=== PATIENT | male | born 1985 | race African-American/Black ===

== ENCOUNTER 2022-01-17 21:13 | Observation (INO) | payer SELFPAY ==
[2022-01-17] VITALS (11 sets, daily range): BP systolic 106–129; BP diastolic 52–74; PULSE 66–73; RESP 9–16; TEMP 37.2; O2SAT 89–100
--- NOTE | ~2022-01-17 | XR_ITS ---
EXAMINATION: XR chest 2V DATE: 01/18/2022 00:27 INDICATION: Leukocytosis. TECHNIQUE: Frontal and lateral views of the chest were obtained. COMPARISON: CT abdomen and pelvis 01/17/2022 FINDINGS: There is no pneumonia, pleural effusion, or pneumothorax. Cardiomegaly is noted. Surgical c lips in the right upper quadrant are likely from cholecystectomy. There is sclerosis in left humeral head, consistent with osteonecrosis. IMPRESSION: 1. Cardiomegaly. Reviewed, dictated and finalized at location A. ICULUM DIRECTOR IMPRESSION: 1. Cardiomegaly.
--- NOTE | ~2022-01-17 | CT_ITS ---
EXAMINATION: CT abdomen pelvis w con DATE: 01/17/2022 22:54 INDICATION: Lower abdominal pain, vomiting and leukocytosis TECHNIQUE: Computed tomography (CT) of the abdomen and pelvis was performed with 100 mL Omnipaque-350 intravenous contrast. Automated exposure control and iterative reconstruction technique were employe d. The dose-length product was 223.80 mGy-cm. COMPARISON: None FINDINGS: Curvilinear band of discoid atelectasis/scarring in the right lower lobe with associated mild volume loss. Cardiomegaly. No pericardial or pleural effusion. Cholecystectomy clips the gallbladder fossa. Hepatomegaly. 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 Pancreas, bilateral adrenal glands and rig ht kidney are normal. Small regions of subtle decreased cortical enhancement in the left kidney which could be related to infection or infarct no abnormal bowel wall thickening or obstruction. Bladder i s normal. No free intraperitoneal gas or fluid. No pathologically enlarged abdominal or pelvic lympha denopathy. Mild subarticular cystic change at the right femoral head which osteonecrosis could be rel ated to osteoarthritis with sequela of chronic osteonecrosis. IMPRESSION: 1. Cholecystectomy clips and small calcified likely autoinfarcted spleen suggesting sickle cell disea se. 2. Small regions of decreased cortical enhancement at the left kidney which could be related to pyelo nephritis or age-indeterminate infarct potentially associated with suspected sickle cell disease. Cor relate with urinalysis. 3. Hepatomegaly. 4. Small region of subarticular cystic change at the right femoral head related to osteoarthritis or sequela of chronic osteonecrosis again suspicious for sickle cell disease. 5. Cardiomegaly. Reviewed, dictated and finalized at location A. ER OPERATOR IMPRESSION: 1. Cholecystectomy clips and small calcified likely autoinfarcted spleen sugges ting sickle cell disease. 2. Small regions of decreased cortical enhancement at the left kidney which cou ld be related to pyelonephritis or age-indeterminate infarct potentially associ ated with suspected sickle cell disease. Correlate with urinalysis. 3. Hepatomegaly. 4. Small region of subarticular cystic change at the right femoral head related to osteoarthritis or sequela of chronic osteonecrosis again suspicious for sic kle cell disease. 5. Cardiomegaly.
--- NOTE | 2022-01-17 21:31 | ED.ABDPAIN ---
HPI - Abdominal Pain General Chief Complaint: Abdominal Pain Stated Complaint: sickle cell Time Seen by Provider: 01/17/22 21:21 Source: patient and family Mode of arrival: EMS Limitations: no limitations History of Present Illness HPI narrative: Pt is a 36 y/o male, PMHx of sickle cell anemia, presents to ED via EMS from home with C/O diffuse lower abdominal pain, nausea and vomiting since waking this morning. He estimates 6-8 episodes of vomiting without hematemesis or diarrhea. His LBM was two days ago. He denies known sick contacts or COV exposures. He was given Morphine and Zofran in route and his pain is marginally improved. He denies any additional associated symptoms or modifying factors. Pain Consistency: constant Location: other (diffuse lower abdomen) Severity: moderate Quality: cramping and aching Radiation: none Migration to: no migration Exacerbating factors: eating Relieving factors: nothing Associated symptoms: nausea and vomiting Related Data Allergies Allergy/AdvReac Type Severity Reaction Status Date / Time acetaminophen [From Percocet] AdvReac Nausea Verified 01/17/22 21:30 oxycodone [From Percocet] AdvReac Nausea Verified 01/17/22 21:30 Review of Systems Review of Systems: refer to HPI Constitutional: Constitutional: Reports as per HPI Gastrointestinal: Gastrointestinal: Reports as per HPI [facility] Past Medical History Medical History Sickle cell anemia with crisis Exam Const: General: cooperative and uncomfortable Nutritional Appearance: average body habitus Orientation/consciousness: oriented to person, oriented to place, oriented to time and patient oriented x3 Limitations: no limitations HENMT: Head: normal to inspection Ears: hearing grossly normal bilaterally Face and sinus: normal facial exam Mouth: Yes Normal oral and palatal mucosa present Throat: posterior oropharynx normal Eyes: General: appearance normal, both eyes and all related structures Visual Hirsch: normal visual hirsch by confrontation Alignment and Position: alignment normal Periorbital: periorbital findings normal Eyelids: eyelids normal Conjunctivae: conjunctivae normal Sclera: sclerae normal Cornea: corneas normal Pupils: Equal, round and reactive pupils present EOM: EOMs intact bilaterally Direct Ophthalmoscopy: no photophobia Neck: Neck: normal visual inspection Thyroid: thyroid normal Lymphatic: no lymphadenopathy noted Chest: Chest palpation & inspection: normal inspection of the chest Breast/axilla inspection: normal inspection of the breasts Breast/axilla palpation: normal palpation of the breasts Resp: Effort & Inspection: normal respiratory effort, able to speak in complete sentences and abnormal respiratory pattern Auscultation: clear to auscultation bilaterally Cardio: Palpation: normal PMI Rate: regular rate Rhythm: regular rhythm Heart sounds: S1 normal heart sound present and S2 normal heart sound present Peripheral pulses: Peripheral pulses 2+ throughout GI: Inspection: normal to inspection GI Palp: Yes Soft to palpation and Yes Other GI palpation findings present (no TTP, no rebound tenderness or pain at McBurney's point, neg Ledesma sign) Percussion: Yes normal to percussion Auscultation: normal bowel sounds Rectal Exam: deferred Course Vital Signs Vital signs: Vital Signs Pulse Rate 72 01/17/22 21:17 Respiratory Rate 13 01/17/22 21:17 Pulse Oximetry 90 01/17/22 21:17 Temperature 37.2 C 01/17/22 21:18 Pulse Rate 74 01/18/22 00:16 Respiratory Rate 14 01/18/22 00:16 Blood Pressure 135/71 01/18/22 00:16 Pulse Oximetry 97 01/18/22 00:16 MDM - Abdominal Pain Lab Data Result diagrams: 01/17/22 21:35 01/17/22 21:35 Labs: Lab Results 01/17/22 01/17/22 01/17/22 Range/Units 21:35 21:35 22:53 WBC 15.5 H (4.5-10.0) K/mm3 RBC 1.86 L (4.2-5.4) M/mm3 Hgb 6.
[2022-01-17] MEDS: PANTOPRAZOLE SODIUM IV 40 MG VIAL IV PUSH (21:32)
[2022-01-17] MEDS: MORPHINE SULFATE (*CRX) 4 MG/ML INJ IV PUSH (21:34)
[2022-01-17] MEDS: SODIUM CHLORIDE 0.9% IV 1,000 ML 999 ML IV CONT (21:35)
[2022-01-17 21:43] LABS: Mean Corpuscular HGB Conc 36.7 g/dl (32-36); Mean Corpuscular Hemoglobin 34.9 pg (26-34); Mean Corpuscular Volume 95.2 fl (80-100); Mean Platelet Volume 11.1 fl (7.4-10.4); Platelet Count Result 457 k/mm3 (150-375); Red Blood Count 1.86 M/mm3 (4.2-5.4); Red Cell Distribution Width 25.8 % (11.5-14.5); White Blood Count 15.5 K/mm3 (4.5-10.0)
[2022-01-17 21:58] LABS: Alanine Aminotransferase 26 U/L (4-35); Albumin Level 4.3 g/dL (3.5-5.1); Alkaline Phosphatase 91 U/L (38-126); Anion Gap 5 mmol/L (8-16); Aspartate Amino Transferase 69 U/L (14-36); Bilirubin,Total 8.3 mg/dL (0.2-1.3); Blood Urea Nitrogen 10 mg/dL (7-17); Calcium 8.4 mg/dL (8.4-10.2); Carbon Dioxide 25 mmol/L (22-30); Chloride 110 mmol/L (98-107); Estimated CRCL calculation 97 ml/min; Estimated Glomerular Filt Rate > 60; Glucose 109 mg/dL (65-110); Lipase 89 U/L (23-300); Potassium 4.5 mmol/L (3.4-5.0); Sodium 140 mmol/L (137-145)
[2022-01-17 22:19] LABS: Hemoglobin 6.5 g/dL (12.0-15.0)
[2022-01-17 22:20] LABS: Hematocrit 17.7 % (37.0-47.0); Reticulocyte Percent 42.01 % (0.7-4.3); Reticulocytes Absolute 0.73 B/L (32.2-175.7)
[2022-01-17 22:21] LABS: Immature Reticulocyte Fraction 25.7 % (3.0-15.9); Reticulocyte Hemoglobin Conten 32.3 pg (28.2-35.7)
[2022-01-17 22:22] LABS: Basophils Absolute Manual 0.15 K/mm3 (0.0-0.1); Basophils Percent Manual 1 % (0-1); Lymphocytes Absolute Manual 1.08 K/mm3 (1.1-4.5); Lymphocytes Percent Manual 7 % (18-44); Monocytes Absolute Manual 1.39 K/mm3 (0.1-0.90); Monocytes Percent Manual 9 % (3-9); Neutrophils Percent Manual 83 % (46-73); Nucleated Red Blood Cells 3 %; Platelet Estimate Increased (Adequate); Total Cells Counted 100
[2022-01-17 22:23] LABS: Polychromasia 1+ (NORMAL); Sickle Cells 1+ (NORMAL); Target Cells 1+ (NORMAL)
[2022-01-17 23:07] LABS: Add Urine Microscopic? YES; Appearance Urine Clear (Clear); Bilirubin Urine Negative (Negative); Blood Urine 1+ (Negative); Color Urine Yellow (Yellow); Glucose Urine UA Negative (Negative); Ketones Urine Negative (Negative); Leukocyte Esterase Ur Negative LEU/UL (Negative); Nitrate Urine Negative (Negative); Protein Urine Negative (Negative); RBC Urine 0-2 /hpf (0-2); Specific Grav Ur 1.009 (1.001-1.035); Urobilinogen Urine Negative mg/dL (<2.0); WBC Urine 0-3 /hpf
--- NOTE | 2022-01-17 23:10 | PC.NURSE ---
assuming care of pt.
[2022-01-18] VITALS (16 sets, daily range): BP systolic 119–135; BP diastolic 62–84; PULSE 60–82; RESP 14–18; TEMP 35.6–36.8; O2SAT 94–98; BMI 20.7
[2022-01-18] MEDS: MORPHINE SULFATE (*CRX) 4 MG/ML INJ IV PUSH ×3 (00:14→13:06)
[2022-01-18] MEDS: ONDANSETRON INJ 4 MG/2 ML VIAL IV PUSH ×3 (00:14→13:08)
[2022-01-18] MEDS: DEXTROSE 5%/0.45% SOD CHL 1,000 ML 150 ML IV CONT ×2 (02:16→12:26)
--- NOTE | 2022-01-18 04:44 | PM.IMHP ---
H&P: HPI History of Present Illness Date/Time: 01/18/22 04:44 Chief Complaint: Abdominal pain and vomiting Narrative: 36-year-old male with past medical history of sickle cell disease who presented to the ER with abdominal cramping and vomiting. Patient reports that he had began having some lower abdominal discomfort as if his stomach does did not feel well. A few hours later he ate some noodles and shortly thereafter began having some vomiting. He reports that he commonly has lower abdominal pain associated with his sickle cell crisis. He does not usually of vomiting associated with his crisis. He reports that his girlfriend has been telling him for the last 3 days that is sclera are yellow. This usually occurs when he is having sickle cell crisis. He states that he does not have crisis very often his last crisis was in September. Before that he had not crisis for a year or more. He has not seen a steeler in 14 years. He has last time he saw a steeler was prior to going to detention he was in detention for 9 years and was released 4 years ago. He was last hospitalized at [facility] in September. He does not know what type of sickle cell disease that he has. He states that he was discharged on folic acid after his last hospitalization but has not had a renewed. He reports that for the last several days he has also been having increasing pain in his ankles is aching in nature and moderate intensity. His worst pain is ice in his left hand in the air they metacarpals and palmar surface. He has noticed some mild swelling. He is having difficulty with supination. He denies any fevers or chills. He received his 2nd COVID vaccine approximately 4 months ago. He denies any recent ill contacts. He has not had any cough, congestion, rhinorrhea, diarrhea or changes in bowel habits. His last bowel movement was today and was normally formed without hematochezia or melena. He reports that his hemoglobin is usually between 7 and 8. He had to have a blood transfusion at his last hospitalization. Review of Systems Review of Systems: 12 systems were reviewed with pertinent positives and negatives per HPI. Except as documented in the HPI, all other systems were reviewed and are negative. [facility] Past Medical History Medical History (Updated 01/18/22 @ 05:01 by Jannet Rodriguez DO) Sickle cell anemia Surgical History Surgical History (Updated 01/18/22 @ 05:01 by Jannet Rodriguez DO) History of appendectomy (~2012) History of laparoscopic cholecystectomy (~2010) Family History Family History Father Cerebrovascular accident Social History Social History (Updated 01/18/22 @ 05:03 by Jannet Rodriguez DO) Social History: He lives in [place] with his girlfriend of 5 years. He has 1 daughter who is 16 years old is healthy but does not live with him. He worked [employer] what is currently laid off. He smoked 0.5 packs cigarettes for 9 years but quit in 2017. He used to smoke marijuana but has not done so in several years. He denies any alcohol use. He was in detention for 9 years but was released in 2018. Code status: Full code Smoking packs per day: 0.5 Smoking cigarettes per day: 10.0 Years smoked: 9 Smoking pack-years: 4.50 Smoking status: Former smoker Second hand tobacco smoke exposure: No Alcohol intake: never Substance use: former Substance use type: marijuana Spiritual care concerns: No Meds Home Medications and Allergies Home Medications Medication Instructions Recorded Confirmed Type Iron (ferrous sulfate) 325 mg PO DAILY 01/18/22 01/18/22 History Allergies Allergy/AdvReac Type Severity Reaction Status Date / Time oxycodone [From Percocet] AdvReac Nausea Verified 01/17/22 21:30 Vital Signs Vital Signs - 24 hr 01/17/22 21:17 01/17/22 21:18 01/17/22 21:22 Temperature 98.9 F Pulse Rate 72
[2022-01-18] MEDS: HYDROcodone/acetaminophen (*CRX) 10-325 MG TABLET 1 TAB PO (05:46)
[2022-01-18] MEDS: SODIUM CHLORIDE 0.9% IV 250 ML 30 ML IV CONT (05:47)
[2022-01-18] MEDS: FERROUS SULFATE 324 MG TABLET PO (08:53)
[2022-01-18] MEDS: FOLIC ACID 1 MG TABLET PO (08:53)
[2022-01-18 10:35] LABS: Hematocrit 19.3 % (42.0-52.0)
[2022-01-18 16:19] LABS: Hemoglobin 7.3 g/dL (14.0-18.0)
[2022-01-18 16:29] LABS: Hematocrit 20.2 % (42.0-52.0)
--- NOTE | 2022-01-18 17:17 | PM.DS ---
DS: Admitting Diagnosis Discharge Date 01/18/22 Admitting Diagnosis (1) Sickle cell anemia with crisis: Code(s): D57.00 - Hb-SS disease with crisis, unspecified Status: Acute DS: Discharge Diagnosis Discharge Diagnosis (1) Sickle cell anemia with crisis: Code(s): D57.00 - Hb-SS disease with crisis, unspecified Status: Acute (2) Nausea & vomiting: Qualifiers: Vomiting type: unspecified Qualified Code(s): R11.2 - Nausea with vomiting, unspecified Code(s): R11.2 - Nausea with vomiting, unspecified Status: Acute DS: Summary Hospital Course Reason for hospitalization: abd pain Hospital Course: 36-year-old male with sickle cell anemia with pain crisis and symptomatic anemia. The patient's baseline lab values are unknown at the time of admission, however,. he did have evidence of increasing scleral icterus, elevated bilirubin markedly elevated % reticulocyte count. Patient received 1 L normal saline. He was continued on moderate IV fluid hydration with D5 half-normal saline at 150 mL an hour, and was provided w supplemental oxygen. Pain medications were provided with [place] and IV morphine. Pt received one unit of PRBCs and was placed on folic acid daily. Patient's symptoms dramatically improved and he requested to sign out against medical advice shortly after admission stating that he felt better. Patient was provided with AMA form and then discharged. Status at Discharge Functional status at discharge: independent ambulation Overall status at discharge: patient is back to baseline Time Spent with Patient Time attestation: Total time spent providing and/or coordinating discharge services: Time spent: Less than 30 minutes Exam Narrative: GEN: NAD, AAOx3, cooperative HEENT: NCAT, MMM, EOMI Neck: no JVD Lungs: No use of accessory muscles symmetric chest rise Abd: soft, NT, ND Ext: moves all, no cyanosis, no clubbing, no edema Neuro: Cranial nerves intact no focal neurological deficits appreciated Psych: mood and affect congruent DS: Data Data Completed and Pending Labs on day of discharge: Labs from last 24 hours 01/18/22 01/18/22 01/17/22 15:56 10:06 22:53 WBC RBC Hgb 7.3 L 7.0 L Hct 20.2 L* 19.3 L* MCV MCH MCHC RDW Plt Count MPV Immature Gran % (Auto) Neut % (Auto) Lymph % (Auto) [place] % (Auto) Eos % (Auto) Baso % (Auto) Lymph # (Auto) [place] # (Auto) Eos # (Auto) Baso # (Auto) Abs Immat Gran (auto) Absolute Neuts (auto) Absolute Nucleated RBC Total Counted Neutrophils % (Manual) Lymphocytes % (Manual) Monocytes % (Manual) Basophils % (Manual) Nucleated RBC % Abs Lymphs (Manual) Abs Monocytes (Manual) Abs Basophils (Manual) Nucleated RBCs Platelet Estimate Polychromasia Sickle Cells Target Cells Absolute Retic Percent Retic Immature Retic Fraction Retic Hgb Content Sodium Potassium Chloride Carbon Dioxide Anion Gap BUN Creatinine Estim Creat Clear Calc Estimated GFR Glucose Calcium Total Bilirubin AST ALT Alkaline Phosphatase Total Protein Albumin Lipase Urine Color Urine Appearance Urine pH Ur Specific [place] Urine Protein Urine Glucose (UA) Urine Ketones Ur Blood (Man) Urine Nitrate Urine Bilirubin Urine Urobilinogen Leukocyte Esterase Rfl Urine RBC Urine WBC Blood Type A Positive Antibody Screen Negative Crossmatch See Detail 01/17/22 01/17/22 01/17/22 22:53 21:35 21:35 WBC 15.5 H RBC 1.86 L Hgb 6.5 L* Hct 17.7 L* MCV 95.2 MCH 34.9 H MCHC 36.7 H RDW 25.8 H Plt Count 457 H MPV 11.1 H Immature Gran % (Auto) Not Reportable Neut % (Auto) Not Reportable Lymph % (Auto) Not Reportable [place] % (Auto) Not Reportable Eos % (Auto) Not Reportable
== END 2022-01-18 17:25 | disposition left against medical advice (07) ==
LOC: ANHED 22:25 → ANH3MEDSUR 01-18 00:59
PROVIDERS: Admitting Provider Internal Medicine; Emergency Provider Nurse Practitioner Family; Visit Provider Hospitalist
DX: D57.00 Hb-SS disease with crisis, unspecified (principal); R10.30 Lower abdominal pain, unspecified; R11.2 Nausea with vomiting, unspecified; Z87.891 Personal history of nicotine dependence
CPT/HCPCS: 36415; 36430; 71046; 74177; 80053; 81001; 83690; 85014; 85018; 85025; 85046; 85660; 86850; 86900; 86901; 86902; 86920; 96361; 96374; 96375; 96376; 99285; A9270; C9113; G0378; G0379; J2270; J2405; J7030; J7050; P9016; Q9967

== ENCOUNTER 2022-02-13 06:42 | Inpatient (IN) | payer OTHER, SELFPAY ==
[2022-02-13] VITALS (23 sets, daily range): BP systolic 137–167; BP diastolic 77–133; PULSE 70–79; RESP 9–20; TEMP 36.1–36.7; O2SAT 85–100; BMI 23.0; BMI 21.3
--- NOTE | ~2022-02-13 | CT_ITS ---
EXAMINATION: CT abdomen pelvis w con EXAM DATE: 02/13/2022 14:50 INDICATION: Abdominal pain, nausea, vomiting, sickle cell. TECHNIQUE: Spiral CT of the abdomen and pelvis was performed following intravenous injection of 100 m L Omnipaque 350. Axial, coronal and sagittal images of the abdomen and pelvis were reviewed. The do se-length product (DLP) for this examination was 261.43 mGy-cm. The exposure was tailored according to patient size (auto mA exposure control), and iterative reconstruction (ASIR) was used as additiona l dose reduction technique. Comparison is made to prior examination from 01/17/2022. FINDINGS: Small calcified density left upper quadrant, probably patient's spleen given patient's hist ory. Hepatomegaly. Adrenal glands and pancreas are unremarkable. There are cholecystectomy clips. Portal and splenic veins are patent. Kidneys slightly heterogeneous renal parenchymal enhancement, l ess apparent than on prior study. There is no hydronephrosis. The prostate is unremarkable. The bladder is unremarkable. There is no retroperitoneal or pelvic lymphadenopathy. Tiny periumbilical fat-containing hernia. There are no findings to suggest appendicitis. The stomach and small bowel are unremarkable. There is expected amount of colonic stool. No free intraperitoneal gas. There is cardiomegaly. There ar e no pleural or pericardial effusions. The lung bases are unremarkable. The bones are unremarkable. There is no significant interval change. IMPRESSION: 1. Slightly heterogeneous renal cortical enhancement, less conspicuous than prior study. Could be v asculopathy. Excluded upper UTI with urinalysis. 2. Tiny umbilical hernia. 3. Hepatomegaly. 4. Cardiomegaly. Reviewed, dictated and finalized at location A. IMPRESSION: 1. Slightly heterogeneous renal cortical enhancement, less conspicuous than pr ior study. Could be vasculopathy. Excluded upper UTI with urinalysis. 2. Tiny umbilical hernia. 3. Hepatomegaly. 4. Cardiomegaly.
--- NOTE | ~2022-02-13 | CT_ITS ---
EXAMINATION: CTA chest PE protocol EXAM DATE: 02/15/2022 14:30 INDICATION: Hypoxia, sickle cell . TECHNIQUE: Spiral CTA of the chest (pulmonary arteries) was performed with 100 cc Omnipaque 350 intr avenous contrast injection. Images were acquired during the pulmonary arterial phase. Coronal maxi mum intensity projection 3D-reconstructions were created by the technologist on dedicated workstation . Axial, coronal and sagittal reformatted images were reviewed. The dose-length product (DLP) for t his examination was 256.07 mGy-cm. The exposure was tailored according to patient size (auto mA exp osure control), and iterative reconstruction (ASIR) was used as additional dose reduction technique. Correlation is made to abdomen pelvis CT 02/13/2022. FINDINGS: There are no pulmonary emboli in the 1st through 3rd order (central and interlobar) pulmon major arteries. Some loss of attenuation in left upper lobe subsegmental pulmonary arteries from suspe cted most likely from the respiratory motion demonstrated at that level. No thoracic aortic dissect ion. Interval progression in small amount of linear bibasilar opacities likely atelectasis. No pneumonia s uspected. There are no pleural or pericardial effusions. Tracheobronchial tree is patent. There is no mediastinal, hilar or axillary lymphadenopathy. There is no pneumothorax. Severe cardiomega ly. No evidence of coronary arterial calcification. Hepatomegaly. No osteoblastic or osteolytic le sions identified. IMPRESSION: 1. Minor limitations, but no pulmonary emboli suspected. 2. Progression of bibasilar subsegmental atelectasis. 3. Severe cardiomegaly. 4. Hepatomegaly. Reviewed, dictated and finalized at location A.
--- NOTE | ~2022-02-13 | XR_ITS ---
EXAMINATION: XR chest 1V portable DATE: 02/13/2022 10:31 INDICATION: Epigastric abdominal pain. TECHNIQUE: A single frontal view of the chest was obtained on 2 radiographs. COMPARISON: CT abdomen and pelvis 01/17/2022 FINDINGS: There is no pneumonia, pleural effusion, or pneumothorax. Cardiomegaly is noted. IMPRESSION: 1. Cardiomegaly. Reviewed, dictated and finalized at location A. IMPRESSION: 1. Cardiomegaly.
--- NOTE | ~2022-02-13 | XR_ITS ---
EXAMINATION: XR hand LT min 3V EXAM DATE: 02/17/2022 10:07 INDICATION: Pain/injury. TECHNIQUE: Left hand frontal, lateral and oblique projections obtained and reviewed. There is no sixto or study for comparison. FINDINGS: Left metacarpal bones are unremarkable. There are no acute fractures or dislocations ident ified. There is no subcutaneous gas. The soft tissue is unremarkable. There are no radiopaque for eign bodies. IMPRESSION: 1. XR hand LT min 3V exam without acute osseous findings. Reviewed, dictated and finalized at location A.
--- NOTE | 2022-02-13 06:54 | ECG_ITS ---
Measurements Intervals [place] Rate: 70 P: 165 KS: 278 QRS: 78 QRSD: 95 T: 54 QT: 404 QTc: 437 Interpretive Statements SINUS RHYTHM MARKED FIRST DEGREE AV BLOCK VOLTAGE CRITERIA FOR LVH [MEETS CRITERIA IN ONE OF: R(aVL), S(V1), R(V5), R(V5/V6)+S(V1)] NO PREVIOUS ECG AVAILABLE FOR COMPARISON Electronically Signed On 02-13-2022 16:27:39 CDT by Teresa Selby M.D.
[2022-02-13 07:04] LABS: Basophils Absolute Auto 0.1 K/mm3 (0.0-0.1); Basophils Percent Auto 0.7 % (0.2-1.2); Eosinophils Absolute Auto 0.1 K/mm3 (0-0.3); Eosinophils Percent Auto 0.7 % (0-4.4); Immature Granulocyte Absolute 0.16 K/mm3 (0.00-0.031); Immature Platelet Fraction Pct 7.4 % (0.9-11.2); Lymphocytes Absolute Auto 1.78 K/mm3 (0.9-3.2); Lymphocytes Percent Auto 10.8 % (18.3-44.2); Mean Corpuscular HGB Conc 36.1 g/dl (32-36); Mean Corpuscular Hemoglobin 34.5 pg (26-34); Mean Corpuscular Volume 95.5 fl (80-100); Mean Platelet Volume 11.3 fl (7.4-10.4); Monocytes Absolute Auto 2.4 K/mm3 (0.1-0.6); Monocytes Percent Auto 14.5 % (2.6-8.5); Neutrophils Absolute Auto 11.9 K/mm3 (1.3-6.7); Neutrophils Percent Auto 72.3 % (45.5-73.1); Nucleated Red Blood Cells Absolute Auto 0.2 K/mm3 (0.0-0.012); Nucleated Red Blood Cells Perc 1.3 % (0.0-0.2); Platelet Count Result 417 k/mm3 (150-375); Red Cell Distribution Width 23.7 % (11.5-14.5); White Blood Count 16.5 K/mm3 (4.5-10.0)
[2022-02-13] MEDS: SODIUM CHLORIDE 0.9% IV 1,000 ML 999 ML IV CONT ×2 (07:06→08:02)
[2022-02-13 07:23] LABS: Alanine Aminotransferase 60 U/L (4-50); Albumin Level 4.4 g/dL (3.5-5.1); Alkaline Phosphatase 109 U/L (38-126); Anion Gap 8 mmol/L (8-16); Aspartate Amino Transferase 83 U/L (17-59); Bilirubin,Total 9.9 mg/dL (0.2-1.3); Blood Urea Nitrogen 8 mg/dL (9-20); Calcium 8.9 mg/dL (8.4-10.2); Carbon Dioxide 27 mmol/L (22-30); Chloride 107 mmol/L (98-107); Estimated CRCL calculation 121 ml/min; Estimated Glomerular Filt Rate > 60; Glucose 121 mg/dL (65-110); Lipase 96 U/L (23-300); Potassium 4.3 mmol/L (3.4-5.0); Sodium 142 mmol/L (137-145)
[2022-02-13 07:25] LABS: Hemoglobin 6.9 g/dL (14.0-18.0)
[2022-02-13 07:26] LABS: Hematocrit 19.1 % (42.0-52.0); Platelet Estimate Increased (Adequate)
[2022-02-13] MEDS: ONDANSETRON INJ 4 MG/2 ML VIAL IV PUSH ×2 (07:26→13:11)
[2022-02-13 07:27] LABS: Sickle Cells 2+ (NORMAL)
[2022-02-13] MEDS: MORPHINE SULFATE (*CRX) 4 MG/ML INJ IV PUSH (07:27)
--- NOTE | 2022-02-13 07:39 | ED.ABDPAIN ---
HPI - Abdominal Pain General Chief Complaint: Abdominal Pain Stated Complaint: abd pain Time Seen by Provider: 02/13/22 07:11 Source: patient Mode of arrival: ambulatory Limitations: no limitations History of Present Illness HPI narrative: 36-year-old male presents emergency room secondary to abdominal and back pain. States he got online history of sickle cell disease and this is the typical pain he gets from that. Had a last flareup a few weeks ago was hospitalized for several days. Not have any pain medication at home. He is up-to-date on his vaccinations including Covid. Denies any nausea vomiting. States he feels like he has had a fever but is not taking it at home. Related Data Allergies Allergy/AdvReac Type Severity Reaction Status Date / Time oxycodone [From Percocet] AdvReac Nausea Verified 02/13/22 06:49 Review of Systems Review of Systems: CONSTITUTIONAL: Denies fever, chills, or sweats. EYES: Denies visual changes, redness, or discharge. ENT: Denies rhinorrhea, congestion, sore throat, or otalgia. CARDIOVASCULAR: Denies chest pain, palpitations, or edema. RESPIRATORY: Denies cough or dyspnea. GASTROINTESTINAL: Denies nausea, vomiting, or diarrhea. Diffuse abdominal pain GENITOURINARY: Denies dysuria or hematuria. SKIN: Denies rash or itching. MUSCULOSKELETAL: Having back pain and some pain in the lower extremities. NEUROLOGIC: Denies headache, numbness, or weakness. PSYCHIATRIC: Denies anxiety or depression. [facility] Past Medical History Medical History (Updated 02/13/22 @ 14:10 by Shelley Acuna PA-C) Sickle cell anemia Surgical History Surgical History (Updated 02/13/22 @ 14:08 by Shelley Acuna PA-C) History of appendectomy (2012) History of laparoscopic cholecystectomy (2010) Family History Family History Father Cerebrovascular accident Social History Social History (Updated 02/13/22 @ 14:01 by Shelley Acuna PA-C) Social History: He lives in [place] with his girlfriend of 5 years. He has a 16-year-old daughter. He was not present for 9 years but was released in 2018. He was recently laid off and is not currently employed. He smoked 0.5 packs cigarettes for 9 years but quit in 2017. He used to smoke marijuana but has not done so in several years. No alcohol abuse. Surrogate decision maker: Code status: Full code Spiritual care concerns: No Exam Narrative: APPEARANCE: Appears to be in mild distress secondary to pain Head normocephalic and atraumatic. EYES: PERRLA/EOMI, conjunctivae very clear. NOSE: Normal with no drainage EARS:TMS clear Bernardino Young, with good light reflex. THROAT: Pharynx clear, no exudate. NECK: Supple. No adenopathy, no masses. RESPIRATORY: Airway patent, respirations nonlabored. Clear to auscultation bilaterally, no rales, rhonchi, wheezing. CARDIOVASCULAR: Regular rate and rhythm without murmurs, rubs, or gallops. ABDOMINAL: Soft, nondistended, no hepatosplenomegaly. Mild diffuse pain that is nonfocal Musculoskeletal: Moves all extremities. Strength/ROM intact, No edema, No calf tenderness. NEURO: Alert. Cranial nerves II through XII intact. Normal gait. Good coordination. Nonfocal examination. SKIN:: Warm, dry. Normal Color PSYCHIATRIC: Normal affect/mood, normal interaction Course Vital Signs Vital signs: Vital Signs Temperature 98.1 F 02/13/22 06:43 Pulse Rate 71 02/13/22 06:43 Respiratory Rate 12 02/13/22 06:43 Blood Pressure 151/83 H 02/13/22 06:43 Pulse Oximetry 85 L 02/13/22 06:43 Temperature 97.3 F L 02/13/22 15:15 Pulse Rate 73 02/13/22 15:15 Respiratory Rate 18 02/13/22 15:15 Blood Pressure 164/86 H 02/13/22 15:15 Pulse Oximetry 98 02/13/22 15:15 MDM - Abdominal Pain MDM Narrative Medical decision making narrative: Patient comes in with his typical sickle cell painful crisis. IV established and began fluid resuscitation as well as
[2022-02-13 07:44] LABS: Alanine Aminotransferase 58 U/L (4-50); Albumin Level 4.4 g/dL (3.5-5.1); Alkaline Phosphatase 109 U/L (38-126); Anion Gap 6 mmol/L (8-16); Aspartate Amino Transferase 86 U/L (17-59); Bilirubin,Total 9.9 mg/dL (0.2-1.3); Blood Urea Nitrogen 7 mg/dL (9-20); Calcium 8.7 mg/dL (8.4-10.2); Carbon Dioxide 28 mmol/L (22-30); Chloride 107 mmol/L (98-107); Estimated CRCL calculation 121 ml/min; Estimated Glomerular Filt Rate > 60; Glucose 112 mg/dL (65-110); Potassium 4.3 mmol/L (3.4-5.0); Sodium 141 mmol/L (137-145)
--- NOTE | 2022-02-13 08:05 | PC.NURSE ---
PT encouraged to use urinal at bedside. PT states he will notify nurse when he voids.
[2022-02-13] MEDS: MORPHINE SULFATE (*CRX) 2 MG/ML INJ IV PUSH ×3 (09:01→20:28)
[2022-02-13 09:12] LABS: Add Urine Microscopic? YES; Appearance Urine Clear (Clear); Bilirubin Urine Negative (Negative); Blood Urine 1+ (Negative); Color Urine Yellow (Yellow); Glucose Urine UA Negative (Negative); Ketones Urine Negative (Negative); Leukocyte Esterase Ur Negative LEU/UL (Negative); Nitrate Urine Negative (Negative); Protein Urine Negative (Negative); Specific Grav Ur 1.008 (1.001-1.035); Urobilinogen Urine Negative mg/dL (<2.0); WBC Urine 0-3 /hpf
[2022-02-13] MEDS: fentaNYL CITRATE INJ (*CRX) 100 MCG/2 ML VIAL 25 MCG IV PUSH (11:02)
--- NOTE | 2022-02-13 11:48 | PC.NURSE ---
SBAR sent to floor.
--- NOTE | 2022-02-13 12:01 | PC.NURSE ---
Pt reporting nausea and stomach cramping. Hospitalist contacted for medication orders, LMVM. pt and family updated.
[2022-02-13 12:19] LABS: Lactate Dehydrogenase 1188 U/L (313-618)
--- NOTE | 2022-02-13 12:39 | ADMGEN ---
This patient, Giovanni Ocasio, was admitted to Medical Room 346-01. Patient/family oriented to hospital policies and general routines including ID bracelet, bed and alarms, visiting hours, pain management, procedures, bathroom and other care routines, personal items, smoking policy, room service/diet, and visiting hours. Information on how to activate the Rapid Response Team has been discussed. Patient/Family are encouraged to report perceived risks to care and to ask questions if they do not understand what they are told or what they should do.
--- NOTE | 2022-02-13 13:04 | PDONCCN ---
[facility] - Date of Consult Date/Time: 02/13/22 13:04 Requesting Physician: Nohemy Glass MD Primary Care Provider: MACHINE OPERATOR HAY STACKER PHYSICIAN - Consult Narrative Reason for consult: Sickle cell anemia. Narrative: Giovanni Ocasio is a 36 year old male with history of sickle cell disease. Patient goal from inform me that he just got the insurance. He has not seen any director of music and primary care physician in the past. He was recently admitted to the hospital on January 18 with sickle cell crisis episode when he presented with abdominal pain and vomiting but left AMA. Patient came back to the office with abdominal pain nausea and weakness. He denies any diarrhea and melena hematochezia. Labs showed hemoglobin of 6.9 with elevated WBC count of 16.5. Platelets were also elevated at 417. Chest x-ray showed cardiomegaly. Patient had CT scan abdomen done on January 17 that showed hepatomegaly along with small region of cortical enhancement of the left kidney could be related to pyelonephritis or infarction from sickle cell disease. Review of Systems - Review of Systems All systems reviewed & are unremarkable except as noted in HPI and [facility] Medical History: Medical History (Last Reviewed 02/13/22 @ 07:41 by Levi Tyson DO) Sickle cell anemia Surgical History: Surgical History (Last Reviewed 02/13/22 @ 07:41 by Levi Tyson DO) History of appendectomy Onset Date: ~2012 History of laparoscopic cholecystectomy Onset Date: ~2010 Family History: Family History (Last Reviewed 02/13/22 @ 12:49 by Shantel Lucio RN) Father Cerebrovascular accident - Social History Social History: Social History (Last Reviewed 02/13/22 @ 07:41 by Levi Tyson DO) Alcohol Use: Alcohol intake: never Substance Use: Substance use: never Substance use type: marijuana Others: Spiritual care concerns: No Smoking Status: Smoking status: Never smoker Second hand tobacco smoke exposure: No Smoking Pack-years: Smoking packs per day: 0.5 Smoking cigarettes per day: 10.0 Years smoked: 9 Smoking pack-years: 4.50 Meds Home Medications Medication Instructions Recorded Confirmed Type Iron (ferrous sulfate) 325 mg PO DAILY 01/18/22 01/18/22 History Allergies Allergy/AdvReac Type Severity Reaction Status Date / Time oxycodone [From Percocet] AdvReac Nausea Verified 02/13/22 06:49 Results - Labs CBC & Chem 7: 02/13/22 06:52 02/13/22 07:26 Labs: Short CBC 02/13/22 02/13/22 Range/Units 06:52 07:26 WBC 16.5 H Cancelled (4.5-10.0) K/mm3 Hgb 6.9 L* Cancelled (14.0-18.0) g/dL Hct 19.1 L* Cancelled (42.0-52.0) % Plt Count 417 H Cancelled (150-375) k/mm3 BMP 02/13/22 02/13/22 06:52 07:26 Sodium 142 141 Potassium 4.3 4.3 Chloride 107 107 Carbon Dioxide 27 28 BUN 8 L 7 L Creatinine 0.80 0.80 Glucose 121 H 112 H Calcium 8.9 8.7 Liver Function 02/13/22 02/13/22 Range/Units 06:52 07:26 Total Bilirubin 9.9 H 9.9 H (0.2-1.3) mg/dL AST 83 H 86 H (17-59) U/L ALT 60 H 58 H (4-50) U/L Alkaline Phosphatase 109 109 (38-126) U/L Albumin 4.4 4.4 (3.5-5.1) g/dL Urine 02/13/22 Range/Units 08:57 Urine Color Yellow (Yellow) Urine Appearance Clear (Clear) Urine pH 9.0 (5.0-9.0) Ur Specific [place] 1.008 (1.001-1.035) Urine Protein Negative (Negative) mg/dL Urine Glucose (UA) Negative (Negative) mg/dL Assessment and Plan - Additional Plan Sickle cell crisis. Patient is a 36-year-old male with history of sickle cell disease. He has not seen director of music for long time. He was recently admitted to the hospital on January 18 with abdominal pain nausea and vomiting but left AMA. CT abdomen done at that time showed possible pyelonephritis or renal infarction involving the left kidney. Labs from this admission showed hemoglobin of 6.9 with elevated
[2022-02-13] MEDS: SODIUM CHLORIDE 0.9% IV 1,000 ML 100 ML IV CONT (13:14)
[2022-02-13 13:30] LABS: Iron 176 ug/dL (49-181)
[2022-02-13 13:39] LABS: Percent Iron Saturation 62 % (20-50)
--- NOTE | 2022-02-13 14:00 | PM.IMHP ---
H&P: HPI History of Present Illness Date/Time: 02/13/22 14:00 Chief Complaint: Abdominal cramping. Narrative: This is a 36-year-old male with sickle cell disease who presented to the emergency department for evaluation of abdominal cramping. He was recently admitted to the hospital on 01/17/2022 with sickle cell crisis episode after presenting with similar symptoms though he left against medical advice. He has been doing okay since that time however yesterday he developed diffuse cramping in the abdomen as well as pain throughout his back and legs, similar to prior pain crises. Additionally he has had pretty significant nausea and has had several episodes of vomiting. Pertinent labs today showed a hemoglobin and hematocrit of 6.9 and 19.1% respectively with an increase in absolute neutrophil count, and an elevated LDH at 1188; sickle cells were also noted on peripheral smear. He is being admitted in this setting. He denies recent illness however he had a low-grade fever at home of 100?. He is up-to-date on vaccinations including COVID. In addition to the above pain he currently has a mild headache. He denies neck ache, sinus congestion, rhinorrhea, otalgia, odynophagia, chest pain, shortness breast, cough, hematemesis, diarrhea, melena, hematochezia, dysuria, and hematuria. No sick contacts. Review of Systems Review of Systems: Twelve systems were reviewed. He has been told that his heart looked enlarged before but he has never had an echocardiogram done for evaluation. No syncope or near syncope. He denies exertional chest pain shortness of breath. No orthopnea, paroxysmal nocturnal dyspnea, or edema. Except as documented, all other systems were reviewed and are negative. [facility] Past Medical History Medical History (Updated 02/13/22 @ 14:10 by Shelley Acuna PA-C) Sickle cell anemia Surgical History Surgical History (Updated 02/13/22 @ 14:08 by Shelley Acuna PA-C) History of appendectomy (2012) History of laparoscopic cholecystectomy (2010) Family History Family History Father Cerebrovascular accident Social History Social History (Updated 02/13/22 @ 20:27 by Shelley Acuna PA-C) Social History: Lives in [place] with his significant other. He has one child, a 16-year-old daughter. Recently laid off and is not currently employed. Smoked 0.5 packs cigarettes for 9 years but quit in 2017. He used to smoke marijuana but has not done so in several years. No alcohol abuse. Surrogate decision maker: Marilee Cantu, spouse. Code status: Full code Spiritual care concerns: No Meds Home Medications and Allergies Allergies Allergy/AdvReac Type Severity Reaction Status Date / Time oxycodone [From Percocet] AdvReac Nausea Verified 02/13/22 06:49 Vital Signs Vital Signs - 24 hr 02/13/22 06:43 02/13/22 06:50 02/13/22 06:52 Temperature 98.1 F Pulse Rate 71 71 Respiratory Rate 12 9 L Blood Pressure 151/83 H 151/83 H Pulse Oximetry 85 L 92 97 02/13/22 07:01 02/13/22 07:15 02/13/22 07:16 Temperature Pulse Rate 70 74 72 Respiratory Rate 17 11 L 14 Blood Pressure 159/91 H 154/93 H Pulse Oximetry 99 98 98 02/13/22 07:30 02/13/22 07:31 02/13/22 07:45 Temperature Pulse Rate 79 78 77 Respiratory Rate 20 19 17 Blood Pressure 148/133 H Pulse Oximetry 99 98 97 02/13/22 07:46 02/13/22 08:00 02/13/22 08:01 Temperature Pulse Rate 71 71 72 Respiratory Rate 15 17 14 Blood Pressure 156/85 H 150/91 H Pulse Oximetry 98 99 100 02/13/22 08:15 02/13/22 08:16 02/13/22 12:05 Temperature Pulse Rate 75 Respiratory Rate 18 Blood Pressure 146/91 H 137/77 Pulse Oximetry 97 96 98 02/13/22 12:17 02/13/22 12:38 Temperature 97.0 F L Pulse Rate 77 75 Respiratory Rate 18 16 Blood Pressure 167/85 H Pulse Oximetry 98 100 Exam Narrative: General: Moderately ill-appearing gentleman lying on his right side
--- NOTE | 2022-02-13 14:10 | ECHO_ITS ---
Patient Info Name: Giovanni Ocasio Age: 36 years : 1985 Gender: Male Ht: 72 in Wt: 157 lbs BSA: 1.90 m2 HR: 75 bpm BP: 167 / 85 mmHg Heart Rhythm: Sinus Rhythm Technical Quality: Fair Exam Date: 02/13/2022 3:36 PM Exam Location: [facility] Patient Status: Outpatient Admit Date: 02/13/2022 Staff Ordering Physician: Shelley Acuna PA-C Manager Hospital: [facility] Attending Provider: Nohemy Glass MD Referring Physician: Armand CHRISTENSEN; Exam Type: CA echo doppler color flow Study Info Indications - cardiomegaly, sickle cell disease Complete two-dimensional, color flow and Doppler transthoracic echocardiogram is performed. Summary 1. Complete two-dimensional, color flow and Doppler transthoracic echocardiogram is performed. 2. Moderately severe left ventricular enlargement with mild eccentric hypertrophy. Mild global hypokinesis with no segmental wall motion abnormalities. Visual ejection fraction is 45-50%. Normal diastolic function. 3. Left atrial chamber dimension is moderately enlarged. 4. There is mild mitral valve regurgitation. 5. There is mild tricuspid valve regurgitation. 6. Mild pulmonary hypertension, estimated pulmonary arterial systolic pressure is 40 mmHg. 7. Normal sinus rhythm. Left Ventricle Left ventricular chamber dimension is moderately enlarged. Left ventricular systolic function is mildly reduced, estimated at 45-50%. There is mildly increased left ventricular wall thickness. Left ventricular septal wall motion is normal. The left ventricular diastolic function is normal. Right Ventricle Right ventricular chamber dimension is normal. Right ventricular systolic function is normal. Left Atria Left atrial chamber dimension is moderately enlarged. Right Atria Right atrial chamber dimension is normal. Aortic Valve The aortic valve is trileaflet. There is no aortic valve sclerosis. There is no aortic valve stenosis. There is no aortic valve regurgitation. Pulmonic Valve The pulmonic valve is normal. There is no pulmonic valve stenosis. There is no pulmonic regurgitation. Mitral Valve The mitral valve has normal leaflets. There is no mitral valve stenosis. There is mild mitral valve regurgitation. Tricuspid Valve The tricuspid valve leaflets are normal. There is no significant tricuspid valve stenosis. There is mild tricuspid valve regurgitation. Mild pulmonary hypertension, estimated pulmonary arterial systolic pressure is 40 mmHg. Pericardium/Pleural The pericardium appears normal. There is no pericardial effusion. Inferior Vena Cava Normal inferior vena cava with >50% collapse upon inspiration consistent with Empty right atrial pressure, 10 mmHg. Aorta The aortic root size at the sinus of Valsalva is normal. The prox ascending aorta size is normal. Left Ventricular Outflow Tract Name Value Normal LVOT 2D LVOT Diameter 2.1 cm LVOT Doppler LVOT Peak Gradient 5 mmHg LVOT Mean Gradient 2 mmHg LVOT VTI 19 cm
[2022-02-13 14:36] LABS: Folic Acid 9.8 ng/mL (2.76->20)
[2022-02-13] MEDS: PROMETHAZINE HCL 25 MG/ML AMPUL 12.5 MG IV PUSH ×2 (15:15→19:42)
[2022-02-14] VITALS (11 sets, daily range): BP systolic 149–162; BP diastolic 75–92; PULSE 72–82; RESP 14–18; TEMP 36.2–38; O2SAT 92–100
[2022-02-14] MEDS: SODIUM CHLORIDE 0.9% IV 250 ML 30 ML IV CONT (01:16)
[2022-02-14] MEDS: MORPHINE SULFATE (*CRX) 2 MG/ML INJ IV PUSH ×2 (05:17→10:29)
[2022-02-14] MEDS: PROMETHAZINE HCL 25 MG/ML AMPUL 12.5 MG IV PUSH ×3 (05:48→13:27)
[2022-02-14 06:11] LABS: Basophils Absolute Auto 0.1 K/mm3 (0.0-0.1); Basophils Percent Auto 0.5 % (0.2-1.2); Eosinophils Percent Auto 0.2 % (0-4.4); Hematocrit 23.3 % (42.0-52.0); Hemoglobin 8.1 g/dL (14.0-18.0); Immature Granulocyte Absolute 0.14 K/mm3 (0.00-0.031); Immature Granulocyte Percent A 0.7 % (0-0.5); Lymphocytes Absolute Auto 2.52 K/mm3 (0.9-3.2); Lymphocytes Percent Auto 13.5 % (18.3-44.2); Mean Corpuscular HGB Conc 34.8 g/dl (32-36); Mean Corpuscular Hemoglobin 33.1 pg (26-34); Mean Corpuscular Volume 95.1 fl (80-100); Mean Platelet Volume 11.6 fl (7.4-10.4); Monocytes Absolute Auto 2.6 K/mm3 (0.1-0.6); Monocytes Percent Auto 13.8 % (2.6-8.5); Neutrophils Absolute Auto 13.4 K/mm3 (1.3-6.7); Neutrophils Percent Auto 71.3 % (45.5-73.1); Nucleated Red Blood Cells Absolute Auto 0.1 K/mm3 (0.0-0.012); Nucleated Red Blood Cells Perc 0.7 % (0.0-0.2); Platelet Count Result 402 k/mm3 (150-375); Red Blood Count 2.45 M/mm3 (4.6-6.20); Red Cell Distribution Width 20.3 % (11.5-14.5); White Blood Count 18.7 K/mm3 (4.5-10.0)
[2022-02-14 06:25] LABS: Alanine Aminotransferase 49 U/L (4-50); Albumin Level 4.2 g/dL (3.5-5.1); Alkaline Phosphatase 94 U/L (38-126); Anion Gap 9 mmol/L (8-16); Aspartate Amino Transferase 66 U/L (17-59); Bilirubin,Total 7.2 mg/dL (0.2-1.3); Blood Urea Nitrogen 9 mg/dL (9-20); Calcium 8.6 mg/dL (8.4-10.2); Carbon Dioxide 25 mmol/L (22-30); Chloride 107 mmol/L (98-107); Estimated CRCL calculation 100 ml/min; Estimated Glomerular Filt Rate > 60; Glucose 106 mg/dL (65-110); Lactate Dehydrogenase 1015 U/L (313-618); Magnesium 1.8 mg/dL (1.6-2.3); Sodium 141 mmol/L (137-145)
[2022-02-14 07:06] LABS: Thyroid Stimulating Hormone Reflex 0.243 uIU/mL (0.465-4.68)
[2022-02-14] MEDS: SODIUM CHLORIDE 0.9% IV 1,000 ML 100 ML IV CONT ×2 (09:41→21:05)
[2022-02-14 13:02] LABS: SARS-CoV-2 RNA PCR Negative
[2022-02-14 13:25] LABS: Free T4 Free Thyroxine Reflex 1.14 ng/dL (0.78-2.19)
--- NOTE | 2022-02-14 13:33 | PM.IMPN ---
Progress Note: A&P Assessment and Plan (1) Sickle cell anemia with crisis: Code(s): D57.00 - Hb-SS disease with crisis, unspecified Status: Acute Assessment and Plan: -He is being admitted for supportive care including IV fluid rehydration and analgesics and antiemetics as needed. -Dr. Dumont recommended transfusing 1 unit of packed red blood cells -Patient is to follow-up with him after discharge; consider hydroxyurea once hemoglobin stabilizes. (2) Abdominal pain: Code(s): R10.9 - Unspecified abdominal pain Status: Acute Assessment and Plan: -CT of the abdomen pelvis is not show any acute findings, likely related to sickle cell crisis. -Denies pain today but is receiving pain medication -non tender on exam -will check lactate to r/o ischemic bowel -consider laxative/stool softener if lactate normal (3) Leukocytosis: Code(s): D72.829 - Elevated white blood cell count, unspecified Status: Acute Assessment and Plan: -likely due to above in conjunction with N/V -pt did have fever on presentation but this has resolved -did test for covid/flu which was negative -UA negative -CXR w/ cardiomegaly no infiltrates -will obtain blood cultures -continue to monitor for signs of infection (4) Intractable nausea and vomiting: Code(s): R11.2 - Nausea with vomiting, unspecified Status: Acute Assessment and Plan: -Discontinue Zofran as it is not been working. -Phenergan also not working, switched to Reglan. -switched morphine to Dilaudid in the event the morphine was also making him vomit. (5) Cardiomegaly: Code(s): I51.7 - Cardiomegaly Status: Acute Assessment and Plan: -This is never been worked up thus obtained echocardiogram -Echo shows: moderately severe left ventricular enlargement with mild eccentric hypertrophy. Mild global hypokinesis with no segmental wall motion abnormalities. Visual ejection fraction is 45-50%. Normal diastolic function. Left atrial chamber dimension is moderately enlarged. There is mild mitral valve regurgitation. There is mild tricuspid valve regurgitation. Mild pulmonary hypertension, estimated pulmonary arterial systolic pressure is 40 mmHg. Subjective Date/time seen: 02/14/22 13:33 Interval history: 36-year-old male with sickle cell disease admitted for sickle cell crisis. Today he is still having a lot of nausea with continued vomiting. Denies abdominal pain but has been getting morphine. Last BM 2 days ago. No cp/sob. Review of Systems Review of Systems: All systems reviewed & are unremarkable except as noted in HPI and below Exam Narrative: General: Moderately ill-appearing gentleman lying on his right side in bed. Weight: 71.3 kg. BMI: 21.3. HEENT: PERRL. Perhaps mild scleral icterus. Conjunctiva mildly injected. mucous membranes moist. Neck: Supple. Respiratory: Lungs are clear to auscultation bilaterally. Cardiovascular: Regular rate and rhythm with S1-S2. Gastrointestinal: Abdomen is soft and nondistended with positive bowel sounds. Non tender. No guarding or rebound tenderness. Skin: Warm and dry. No rash or lesions on limited exam. Extremities: No cyanosis, clubbing, or edema. Radial and pedal pulses intact. Neurological: Alert and oriented. Cranial nerves 2-12 are grossly intact. No gross focal deficits to casual conversation. Psychiatric: Appropriate mood and affect. Objective Data Vital Signs Vital Signs: Vital Signs - 24 hr 02/13/22 15:15 02/13/22 20:00 02/13/22 21:36 Temperature 97.3 F L 97.3 F L Pulse Rate 73 74 Respiratory Rate 18 16 Blood Pressure 164/86 H 160/77 H Pulse Oximetry 98 100 100 02/13/22 21:46 02/13/22 23:02 02/14/22 01:11 Temperature 98.9 F Pulse Rate 71 77 Respiratory Rate 17 18 Blood Pressure 156/89 H Pulse Oximetry 96 100 100 02/14/22 01:30 02/14/22 02:30 02/14/22 03:30 Tem
[2022-02-14] MEDS: METOCLOPRAMIDE HCL INJ 10 MG/2 ML VIAL 5 MG IV PUSH ×2 (13:58→20:31)
[2022-02-14 14:12] LABS: Total Triiodothyronine (T3) 0.99 NG/ML (0.97-1.69)
[2022-02-14 15:21] LABS: Lactic Acid Reflex 0.8 mmol/L (0.7-2.1)
[2022-02-14] MEDS: HYDROmorphone HCL INJ (*CRX) 1 MG/ML SYR IV PUSH ×3 (18:02→23:58)
[2022-02-14] MEDS: IBUPROFEN 600 MG TABLET PO (19:41)
[2022-02-14] MEDS: HYDROmorphone HCL INJ (*CRX) 1 MG/ML SYR 0.5 MG IV PUSH (21:52)
[2022-02-15] VITALS (11 sets, daily range): BP systolic 130–156; BP diastolic 72–88; PULSE 64–78; RESP 14–18; TEMP 36.1–36.6; O2SAT 90–96
--- NOTE | 2022-02-15 03:25 | PC.NURSE ---
Patient called stating he was still in pain after pain medication. I told pt he still has 40 minutes left for his next dose of pain medication and that if he feels that he is unable to wait for next dose then I can call doctor to request another order of pain medication. He stated he would like to wait until the next dose of pain medication is due. Will continue to monitor patient.
[2022-02-15] MEDS: HYDROmorphone HCL INJ (*CRX) 1 MG/ML SYR IV PUSH ×7 (04:05→22:00)
[2022-02-15 06:21] LABS: Basophils Absolute Auto 0.1 K/mm3 (0.0-0.1); Basophils Percent Auto 0.6 % (0.2-1.2); Eosinophils Absolute Auto 0.2 K/mm3 (0-0.3); Immature Granulocyte Absolute 0.13 K/mm3 (0.00-0.031); Immature Granulocyte Percent A 0.7 % (0-0.5); Lymphocytes Absolute Auto 3.23 K/mm3 (0.9-3.2); Lymphocytes Percent Auto 16.9 % (18.3-44.2); Mean Corpuscular Hemoglobin 33.5 pg (26-34); Mean Corpuscular Volume 95.6 fl (80-100); Mean Platelet Volume 11.8 fl (7.4-10.4); Monocytes Absolute Auto 3.2 K/mm3 (0.1-0.6); Monocytes Percent Auto 16.9 % (2.6-8.5); Neutrophils Absolute Auto 12.2 K/mm3 (1.3-6.7); Neutrophils Percent Auto 63.9 % (45.5-73.1); Nucleated Red Blood Cells Absolute Auto 0.1 K/mm3 (0.0-0.012); Nucleated Red Blood Cells Perc 0.5 % (0.0-0.2); Platelet Count Result 363 k/mm3 (150-375); Red Blood Count 2.06 M/mm3 (4.6-6.20); Red Cell Distribution Width 20.7 % (11.5-14.5); White Blood Count 19.1 K/mm3 (4.5-10.0)
[2022-02-15 06:34] LABS: Hematocrit 19.7 % (42.0-52.0); Hemoglobin 6.9 g/dL (14.0-18.0)
[2022-02-15 06:35] LABS: Alanine Aminotransferase 41 U/L (4-50); Albumin Level 3.8 g/dL (3.5-5.1); Alkaline Phosphatase 82 U/L (38-126); Anion Gap 6 mmol/L (8-16); Aspartate Amino Transferase 58 U/L (17-59); Blood Urea Nitrogen 13 mg/dL (9-20); Calcium 8.6 mg/dL (8.4-10.2); Carbon Dioxide 26 mmol/L (22-30); Chloride 109 mmol/L (98-107); Estimated CRCL calculation 113 ml/min; Estimated Glomerular Filt Rate > 60; Glucose 89 mg/dL (65-110); Lipase 122 U/L (23-300); Potassium 4.2 mmol/L (3.4-5.0); Sodium 141 mmol/L (137-145)
[2022-02-15 09:01] LABS: Lactate Dehydrogenase 937 U/L (313-618)
[2022-02-15] MEDS: SODIUM CHLORIDE 0.9% IV 250 ML 30 ML IV CONT (09:58)
[2022-02-15] MEDS: METOCLOPRAMIDE HCL INJ 10 MG/2 ML VIAL 5 MG IV PUSH ×2 (09:58→17:19)
--- NOTE | 2022-02-15 11:07 | PM.IMPN ---
Progress Note: A&P Assessment and Plan (1) Sickle cell anemia with crisis: Code(s): D57.00 - Hb-SS disease with crisis, unspecified Status: Acute Assessment and Plan: -He is being admitted for supportive care including IV fluid rehydration and analgesics and antiemetics as needed. -Dr. Dumont recommended transfusing 1 unit of packed red blood cells, went from 6.9 to 8.1 yesterday -today back down to 6.9, spoke w/ Dr. Dumont, patient is receiving another unit of PRBC -Patient is to follow-up with him after discharge; consider hydroxyurea once hemoglobin stabilizes. (2) Abdominal pain: Code(s): R10.9 - Unspecified abdominal pain Status: Acute Assessment and Plan: -CT of the abdomen pelvis is not show any acute findings, likely related to sickle cell crisis -Denies pain today but is still receiving IV pain medication -non tender on exam -negative lactate, ischemic bowel less likely -feels constipated, will do miralax/colace (3) Leukocytosis: Code(s): D72.829 - Elevated white blood cell count, unspecified Status: Acute Assessment and Plan: -likely due to above in conjunction with N/V -pt did have fever on presentation but this has resolved -did test for covid/flu which was negative -UA negative -CXR w/ cardiomegaly no infiltrates -blood cultures pending -continue to monitor for signs of infection, will not initiate abx at this time as we do not have a source, less likely to be bacterial infection. Will readdress if fever returns (4) Intractable nausea and vomiting: Code(s): R11.2 - Nausea with vomiting, unspecified Status: Acute Assessment and Plan: -Discontinue Zofran as it is not been working. -Phenergan also not working, switched to Reglan. -switched morphine to Dilaudid in the event the morphine was also making him vomit. -seems to be improved today. Tolerating ice chips. Will advance to clears. (5) Cardiomegaly: Code(s): I51.7 - Cardiomegaly Status: Acute Assessment and Plan: -This is never been worked up thus obtained echocardiogram -Echo shows: moderately severe left ventricular enlargement with mild eccentric hypertrophy. Mild global hypokinesis with no segmental wall motion abnormalities. Visual ejection fraction is 45-50%. Normal diastolic function. Left atrial chamber dimension is moderately enlarged. There is mild mitral valve regurgitation. There is mild tricuspid valve regurgitation. Mild pulmonary hypertension, estimated pulmonary arterial systolic pressure is 40 mmHg. (6) Hypoxia: Code(s): R09.02 - Hypoxemia Status: Acute Assessment and Plan: -was 84% on RA -no cp or sob -check CTA to r/o PE Subjective Date/time seen: 02/15/22 11:07 Interval history: 36-year-old male with sickle cell disease admitted for sickle cell crisis. Pain is controlled today with Dilaudid. Nausea is also better today with the switch to Reglan. No vomiting today. Tolerating ice chips. No cp or sob however he was placed on 1L NC as he was 84% on RA this morning. No BM but he is passing gas. Review of Systems Review of Systems: All systems reviewed & are unremarkable except as noted in HPI and below Exam Narrative: General: Mildly ill-appearing gentleman lying on his right side in bed. Weight: 71.3 kg. BMI: 21.3. HEENT: PERRL. Perhaps mild scleral icterus. Conjunctiva mildly injected. mucous membranes moist. Neck: Supple. Respiratory: Lungs are clear to auscultation bilaterally. Cardiovascular: Regular rate and rhythm with S1-S2. Gastrointestinal: Abdomen is soft and nondistended with positive bowel sounds. Non tender. No guarding or rebound tenderness. Skin: Warm and dry. No rash or lesions on limited exam. Extremities: No cyanosis, clubbing, or edema. Radial and pedal pulses intact. Neurological: Alert and oriented. Cranial nerves 2-12 are grossly
[2022-02-15] MEDS: SODIUM CHLORIDE 0.9% IV 1,000 ML 100 ML IV CONT (14:04)
[2022-02-15 16:15] LABS: Hematocrit 23.5 % (42.0-52.0); Hemoglobin 8.4 g/dL (14.0-18.0)
[2022-02-15] MEDS: DOCUSATE SODIUM 100 MG CAPSULE PO (21:08)
[2022-02-16] MEDS: HYDROmorphone HCL INJ (*CRX) 1 MG/ML SYR IV PUSH ×4 (00:57→18:28)
[2022-02-16] MEDS: SODIUM CHLORIDE 0.9% IV 1,000 ML 100 ML IV CONT ×3 (02:05→23:27)
[2022-02-16 04:39] VITALS: BP 139/75; PULSE 74; RESP 16; TEMP 36.1; O2SAT 92
[2022-02-16 05:27] LABS: Basophils Absolute Auto 0.1 K/mm3 (0.0-0.1); Basophils Percent Auto 0.6 % (0.2-1.2); Eosinophils Absolute Auto 0.3 K/mm3 (0-0.3); Hemoglobin 7.5 g/dL (14.0-18.0); Immature Granulocyte Absolute 0.08 K/mm3 (0.00-0.031); Immature Granulocyte Percent A 0.5 % (0-0.5); Lymphocytes Percent Auto 16.5 % (18.3-44.2); Mean Corpuscular HGB Conc 35.7 g/dl (32-36); Mean Corpuscular Hemoglobin 32.6 pg (26-34); Mean Corpuscular Volume 91.3 fl (80-100); Mean Platelet Volume 10.7 fl (7.4-10.4); Monocytes Absolute Auto 3.1 K/mm3 (0.1-0.6); Monocytes Percent Auto 20.6 % (2.6-8.5); Neutrophils Percent Auto 59.8 % (45.5-73.1); Nucleated Red Blood Cells Absolute Auto 0.1 K/mm3 (0.0-0.012); Nucleated Red Blood Cells Perc 0.7 % (0.0-0.2); Platelet Count Result 370 k/mm3 (150-375); Red Cell Distribution Width 19.9 % (11.5-14.5); White Blood Count 15.1 K/mm3 (4.5-10.0)
[2022-02-16 05:43] LABS: Alanine Aminotransferase 40 U/L (4-50); Albumin Level 3.9 g/dL (3.5-5.1); Alkaline Phosphatase 72 U/L (38-126); Anion Gap 7 mmol/L (8-16); Aspartate Amino Transferase 63 U/L (17-59); Bilirubin,Total 15.9 mg/dL (0.2-1.3); Blood Urea Nitrogen 12 mg/dL (9-20); Calcium 8.2 mg/dL (8.4-10.2); Carbon Dioxide 26 mmol/L (22-30); Chloride 106 mmol/L (98-107); Estimated CRCL calculation 126 ml/min; Estimated Glomerular Filt Rate > 60; Glucose 103 mg/dL (65-110); Potassium 3.5 mmol/L (3.4-5.0); Sodium 139 mmol/L (137-145)
[2022-02-16 06:25] LABS: Platelet Estimate Adequate (Adequate); Sickle Cells 2+ (NORMAL)
[2022-02-16 08:15] VITALS: O2SAT 93
--- NOTE | 2022-02-16 09:28 | PM.IMPN ---
Progress Note: A&P Assessment and Plan (1) Sickle cell anemia with crisis: Code(s): D57.00 - Hb-SS disease with crisis, unspecified Status: Acute Assessment and Plan: -He is being admitted for supportive care including IV fluid rehydration and analgesics and antiemetics as needed. -Dr. Dumont recommended transfusing 1 unit of packed red blood cells, went from 6.9 to 8.1 -yesterday back down to 6.9, spoke w/ Dr. Dumont, pt received another unit of PRBC -today his hgb is 7.5 -Patient is to follow-up with him after discharge; consider hydroxyurea once hemoglobin stabilizes. -recheck cbc tomorrow (2) Abdominal pain: Code(s): R10.9 - Unspecified abdominal pain Status: Acute Assessment and Plan: -CT of the abdomen pelvis does not show any acute findings, likely related to sickle cell crisis -Denies pain today but is still receiving IV pain medication, will try to transition to PO norco now that he is tolerating clears -non tender on exam -negative lactate, ischemic bowel less likely (3) Leukocytosis: Code(s): D72.829 - Elevated white blood cell count, unspecified Status: Acute Assessment and Plan: -likely due to above in conjunction with N/V -pt did have fever on presentation but this has resolved -did test for covid/flu which was negative -UA negative -CXR w/ cardiomegaly no infiltrates -blood cultures NGTD -continue to monitor for signs of infection, will not initiate abx at this time as we do not have a source, less likely to be bacterial infection. Will readdress if fever returns (4) Intractable nausea and vomiting: Code(s): R11.2 - Nausea with vomiting, unspecified Status: Acute Assessment and Plan: -Discontinue Zofran as it is not been working. -Phenergan also not working, switched to Reglan. -switched morphine to Dilaudid in the event the morphine was also making him vomit. -continued improvement, will transition to full liquids today (5) Cardiomegaly: Code(s): I51.7 - Cardiomegaly Status: Acute Assessment and Plan: -This is never been worked up thus obtained echocardiogram -Echo shows: moderately severe left ventricular enlargement with mild eccentric hypertrophy. Mild global hypokinesis with no segmental wall motion abnormalities. Visual ejection fraction is 45-50%. Normal diastolic function. Left atrial chamber dimension is moderately enlarged. There is mild mitral valve regurgitation. There is mild tricuspid valve regurgitation. Mild pulmonary hypertension, estimated pulmonary arterial systolic pressure is 40 mmHg. (6) Hypoxia: Code(s): R09.02 - Hypoxemia Status: Acute Assessment and Plan: -was 84% on RA -no cp or sob -CTA no PE -currently on RA Subjective Date/time seen: 02/16/22 09:28 Interval history: 36-year-old male with sickle cell disease admitted for sickle cell crisis. Pain is controlled with Dilaudid. No nausea or vomiting today. Tolerating clears. Had a BM yesterday. No cp or sob. He is on room air currently. Review of Systems Review of Systems: All systems reviewed & are unremarkable except as noted in HPI and below Exam Narrative: General: NAD, non toxic. Weight: 71.3 kg. BMI: 21.3. HEENT: PERRL. Perhaps mild scleral icterus. Conjunctiva mildly injected. mucous membranes moist. Neck: Supple. Respiratory: Lungs are clear to auscultation bilaterally. Cardiovascular: Regular rate and rhythm with S1-S2. Gastrointestinal: Abdomen is soft and nondistended with positive bowel sounds. Non tender. No guarding or rebound tenderness. Skin: Warm and dry. No rash or lesions on limited exam. Extremities: No cyanosis, clubbing, or edema. Radial and pedal pulses intact. Neurological: Alert and oriented. Cranial nerves 2-12 are grossly intact. No gross focal deficits to casual conversation. Psychiatric: Appropriate mood and aff
[2022-02-16] MEDS: METOCLOPRAMIDE HCL INJ 10 MG/2 ML VIAL 5 MG IV PUSH ×2 (10:33→16:36)
--- NOTE | 2022-02-16 13:55 | PC.NURSE ---
pt called RN in the room for feeling nauseous and dry heaving. pt is currently on a clear liquid diet. RN entered the room and found a large bag of [employer] potato chips in the room. RN asked pt if he had been eating these chips and the pt stated he has been eating them last night and today. RN educated pt that he is on a liquid diet and should not have been eating anything solid. That is why the pt is feeling nauseous. RN threw bag of chips away and reeducated pt. Notified hospitalist, Christina Thomas.
[2022-02-16 14:00] VITALS: BP 157/82; PULSE 71; RESP 18; TEMP 36.3; O2SAT 95
--- NOTE | 2022-02-16 15:12 | PC.NURSE ---
pt called RN in to room with more complaints of abdominal pain, nausea and dry heaving. pt is insisting that he get another dose of Reglan, however it is 1.5 hours too early for next dose. When RN was explaining this to pt, he stated so am I just supposed to sit in here nauseated and in pain? RN continued to explain to pt that we have guidelines we have to follow and the Reglan is ordered Q6H. RN explained to pt that if he would like he can have a pain pill or have another IV started for a dose of Dilaudid. pt did not want this and insisted on speaking with another nurse. RN called hospitalist Neisha who is in the pt's room right now.
[2022-02-16] MEDS: HYDROcodone/acetaminophen (*CRX) 10-325 MG TABLET 1 TAB PO (17:51)
[2022-02-16 20:05] VITALS: O2SAT 95
[2022-02-16 21:22] VITALS: BP 123/70; PULSE 69; RESP 18; TEMP 37.2; O2SAT 92
[2022-02-16] MEDS: DOCUSATE SODIUM 100 MG CAPSULE PO (21:29)
[2022-02-17] MEDS: HYDROmorphone HCL INJ (*CRX) 1 MG/ML SYR IV PUSH ×3 (00:22→19:39)
[2022-02-17 04:38] VITALS: BP 135/79; PULSE 63; RESP 15; TEMP 37.1; O2SAT 95
[2022-02-17 05:35] LABS: Basophils Absolute Auto 0.1 K/mm3 (0.0-0.1); Basophils Percent Auto 0.6 % (0.2-1.2); Eosinophils Absolute Auto 0.3 K/mm3 (0-0.3); Eosinophils Percent Auto 1.9 % (0-4.4); Immature Granulocyte Absolute 0.08 K/mm3 (0.00-0.031); Immature Granulocyte Percent A 0.6 % (0-0.5); Lymphocytes Absolute Auto 3.96 K/mm3 (0.9-3.2); Lymphocytes Percent Auto 27.3 % (18.3-44.2); Mean Corpuscular HGB Conc 35.4 g/dl (32-36); Mean Corpuscular Volume 93.4 fl (80-100); Mean Platelet Volume 10.8 fl (7.4-10.4); Monocytes Absolute Auto 2.9 K/mm3 (0.1-0.6); Neutrophils Absolute Auto 7.2 K/mm3 (1.3-6.7); Neutrophils Percent Auto 49.6 % (45.5-73.1); Nucleated Red Blood Cells Absolute Auto 0.1 K/mm3 (0.0-0.012); Nucleated Red Blood Cells Perc 0.4 % (0.0-0.2); Platelet Count Result 364 k/mm3 (150-375); Red Blood Count 2.12 M/mm3 (4.6-6.20); Red Cell Distribution Width 19.5 % (11.5-14.5); White Blood Count 14.5 K/mm3 (4.5-10.0)
[2022-02-17 05:46] LABS: Alanine Aminotransferase 35 U/L (4-50); Albumin Level 3.7 g/dL (3.5-5.1); Alkaline Phosphatase 69 U/L (38-126); Anion Gap 5 mmol/L (8-16); Aspartate Amino Transferase 51 U/L (17-59); Bilirubin,Total 12.4 mg/dL (0.2-1.3); Blood Urea Nitrogen 10 mg/dL (9-20); Calcium 8.2 mg/dL (8.4-10.2); Carbon Dioxide 28 mmol/L (22-30); Chloride 105 mmol/L (98-107); Estimated CRCL calculation 148 ml/min; Estimated Glomerular Filt Rate > 60; Glucose 94 mg/dL (65-110); Potassium 3.5 mmol/L (3.4-5.0); Sodium 138 mmol/L (137-145)
[2022-02-17 06:07] LABS: Hematocrit 19.8 % (42.0-52.0)
[2022-02-17 06:08] LABS: Platelet Estimate Adequate (Adequate); Sickle Cells 2+ (NORMAL)
[2022-02-17 06:09] LABS: Target Cells 1+ (NORMAL)
--- NOTE | 2022-02-17 08:45 | PM.IMPN ---
Progress Note: A&P Assessment and Plan (1) Sickle cell anemia with crisis: Code(s): D57.00 - Hb-SS disease with crisis, unspecified Status: Acute Assessment and Plan: -He is being admitted for supportive care including IV fluid rehydration and analgesics and antiemetics as needed. -Dr. Dumont recommended transfusing 1 unit of packed red blood cells, went from 6.9 to 8.1 -02/15 back down to 6.9, spoke w/ Dr. Dumont, pt received another unit of PRBC -02/16 his hgb is 7.5 -02/17 his hgb is 7.0 -Patient is to follow-up with him after discharge; consider hydroxyurea once hemoglobin stabilizes. -recheck cbc tomorrow (2) Abdominal pain: Code(s): R10.9 - Unspecified abdominal pain Status: Acute Assessment and Plan: -CT of the abdomen pelvis does not show any acute findings, likely related to sickle cell crisis -non tender on exam -negative lactate, ischemic bowel less likely -improved now after BM. tried to transition from Dilaudid to norco but he threw it up shortly after taking it. Will try tramadol today. -tolerating clears, will advance to full liquids (3) Leukocytosis: Code(s): D72.829 - Elevated white blood cell count, unspecified Status: Acute Assessment and Plan: -likely due to above in conjunction with N/V -pt did have fever on presentation but this has resolved -did test for covid/flu which was negative -UA negative -CXR w/ cardiomegaly no infiltrates -blood cultures NGTD -continue to monitor for signs of infection, will not initiate abx at this time as we do not have a source, less likely to be bacterial infection. Will readdress if fever returns -WBC trending down as he starts to improve clinically (4) Intractable nausea and vomiting: Code(s): R11.2 - Nausea with vomiting, unspecified Status: Acute Assessment and Plan: -Discontinue Zofran as it is not been working. -Phenergan also not working, switched to Reglan. -switched morphine to Dilaudid in the event the morphine was also making him vomit. -continued improvement, will transition to full liquids today (5) Cardiomegaly: Code(s): I51.7 - Cardiomegaly Status: Acute Assessment and Plan: -This is never been worked up thus obtained echocardiogram -Echo shows: moderately severe left ventricular enlargement with mild eccentric hypertrophy. Mild global hypokinesis with no segmental wall motion abnormalities. Visual ejection fraction is 45-50%. Normal diastolic function. Left atrial chamber dimension is moderately enlarged. There is mild mitral valve regurgitation. There is mild tricuspid valve regurgitation. Mild pulmonary hypertension, estimated pulmonary arterial systolic pressure is 40 mmHg. (6) Hypoxia: Code(s): R09.02 - Hypoxemia Status: Acute Assessment and Plan: -was 84% on RA 02/15 -no cp or sob -CTA no PE -currently on RA (7) Hand pain, left: Code(s): M79.642 - Pain in left hand Status: Acute Assessment and Plan: -sounds like he struck something a few weeks ago and continues to have pain and swelling -check XR Subjective Date/time seen: 02/17/22 08:45 Interval history: 36-year-old male with sickle cell disease admitted for sickle cell crisis. Yesterday afternoon I was called to patient room because he was upset after having his [employer] chips taken away from him. He admitted he had been eating them and shortly after he developed abdominal pain and nausea. These were thrown away and I provided education regarding the reason for the liquid diet. Later on he had an enema and a large bowel movement and today he is feeling much better. No N/V/abd pain today. Did try norco yesterday but vomited shortly after. Will try tramadol today. No cp/sob. Does note some pain in his left hand x few weeks after striking something hard. Review of Systems Review of Systems: All sy
[2022-02-17] MEDS: DOCUSATE SODIUM 100 MG CAPSULE PO ×2 (09:00→19:40)
[2022-02-17] MEDS: traMADol HCL (*CRX) 50 MG TABLET PO ×2 (09:02→14:32)
[2022-02-17] MEDS: SODIUM CHLORIDE 0.9% IV 1,000 ML 100 ML IV CONT ×2 (09:02→19:40)
[2022-02-17 10:56] LABS: Add Urine Microscopic? YES; Appearance Urine Clear (Clear); Bacteria Urine Trace /hpf; Bilirubin Urine Negative (Negative); Blood Urine 1+ (Negative); Color Urine Amber (Yellow); Glucose Urine UA Negative (Negative); Ketones Urine Negative (Negative); Leukocyte Esterase Ur Negative LEU/UL (Negative); Nitrate Urine Negative (Negative); Protein Urine Negative (Negative); RBC Urine 0-2 /hpf (0-2); Specific Grav Ur 1.011 (1.001-1.035); Squamous Epithelial Cell Urine Rare /hpf (Few); WBC Urine 0-3 /hpf
[2022-02-17 12:22] LABS: Hemoglobin 7.3 g/dL (14.0-18.0)
[2022-02-17 12:30] LABS: Hematocrit 20.8 % (42.0-52.0)
[2022-02-17 13:57] VITALS: BP 121/80; PULSE 66; RESP 18; TEMP 36.6; O2SAT 99
[2022-02-17 20:42] VITALS: BP 119/71; PULSE 70; RESP 18; TEMP 37.1; O2SAT 98
[2022-02-17 22:50] VITALS: O2SAT 98
[2022-02-18 05:30] LABS: Basophils Absolute Auto 0.1 K/mm3 (0.0-0.1); Basophils Percent Auto 0.8 % (0.2-1.2); Eosinophils Absolute Auto 0.4 K/mm3 (0-0.3); Eosinophils Percent Auto 3.2 % (0-4.4); Immature Granulocyte Absolute 0.06 K/mm3 (0.00-0.031); Immature Granulocyte Percent A 0.5 % (0-0.5); Lymphocytes Absolute Auto 3.17 K/mm3 (0.9-3.2); Lymphocytes Percent Auto 24.4 % (18.3-44.2); Mean Corpuscular HGB Conc 34.3 g/dl (32-36); Mean Corpuscular Hemoglobin 32.7 pg (26-34); Mean Corpuscular Volume 95.3 fl (80-100); Mean Platelet Volume 10.9 fl (7.4-10.4); Monocytes Absolute Auto 2.6 K/mm3 (0.1-0.6); Monocytes Percent Auto 20.1 % (2.6-8.5); Neutrophils Absolute Auto 6.6 K/mm3 (1.3-6.7); Nucleated Red Blood Cells Absolute Auto 0.1 K/mm3 (0.0-0.012); Nucleated Red Blood Cells Perc 0.4 % (0.0-0.2); Platelet Count Result 394 k/mm3 (150-375); Red Blood Count 2.11 M/mm3 (4.6-6.20); Red Cell Distribution Width 19.1 % (11.5-14.5)
[2022-02-18 05:44] LABS: Anion Gap 4 mmol/L (8-16); Blood Urea Nitrogen 11 mg/dL (9-20); Calcium 7.9 mg/dL (8.4-10.2); Carbon Dioxide 30 mmol/L (22-30); Chloride 106 mmol/L (98-107); Creatine Kinase 32 U/L (55-170); Estimated CRCL calculation 148 ml/min; Estimated Glomerular Filt Rate > 60; Glucose 93 mg/dL (65-110); Potassium 3.6 mmol/L (3.4-5.0); Sodium 140 mmol/L (137-145)
[2022-02-18 06:02] LABS: Hematocrit 20.1 % (42.0-52.0)
[2022-02-18 06:03] LABS: Hemoglobin 6.9 g/dL (14.0-18.0)
[2022-02-18 06:10] LABS: Anisocytosis 2+ (NORMAL)
[2022-02-18 06:11] VITALS: BP 154/87; PULSE 72; RESP 18; TEMP 36.9; O2SAT 95
[2022-02-18 06:11] LABS: Sickle Cells 2+ (NORMAL)
[2022-02-18 07:39] VITALS: O2SAT 97
[2022-02-18 08:00] VITALS: O2SAT 97
--- NOTE | 2022-02-18 08:20 | PM.IMPN ---
Progress Note: A&P Assessment and Plan (1) Sickle cell anemia with crisis: Code(s): D57.00 - Hb-SS disease with crisis, unspecified Status: Acute Assessment and Plan: -He is being admitted for supportive care including IV fluid rehydration and analgesics and antiemetics as needed. -Dr. Dumont recommended transfusing 1 unit of packed red blood cells, went from 6.9 to 8.1 -02/15 back down to 6.9, spoke w/ Dr. Dumont, pt received another unit of PRBC -02/16 his hgb is 7.5 -02/17 his hgb is 7.0 -Patient is to follow-up with him after discharge; consider hydroxyurea once hemoglobin stabilizes. -recheck cbc tomorrow - 02/18: Hgb further declined to 6.9. 2 units PRBC's ordered today to be transfused. No hydroxyurea ordered at this time as his Hgb is not yet stable. Will continue to trend CBC and provide IVF hydration and pain control as needed. (2) Abdominal pain: Qualifiers: Abdominal location: unspecified location Qualified Code(s): R10.9 - Unspecified abdominal pain Code(s): R10.9 - Unspecified abdominal pain Status: Acute Assessment and Plan: -CT of the abdomen pelvis does not show any acute findings, likely related to sickle cell crisis -non tender on exam -negative lactate, ischemic bowel less likely -improved now after BM. tried to transition from Dilaudid to norco but he threw it up shortly after taking it. Will try tramadol today. -tolerating clears, will advance to full liquids - 02/18/22: Advance diet as tolerated. Continue anti-emetics and pain meds as needed. Should pain acutely worsen, will consider workup for ischemic bowel secondary to concern for infarction of SMA due to SSC. (3) Leukocytosis: Qualifiers: Leukocytosis type: other Qualified Code(s): D72.828 - Other elevated white blood cell count Code(s): D72.829 - Elevated white blood cell count, unspecified Status: Acute Assessment and Plan: -likely due to above in conjunction with N/V -pt did have fever on presentation but this has resolved -did test for covid/flu which was negative -UA negative -CXR w/ cardiomegaly no infiltrates -blood cultures NGTD -continue to monitor for signs of infection, will not initiate abx at this time as we do not have a source, less likely to be bacterial infection. Will readdress if fever returns -WBC trending down as he starts to improve clinically - 02/18/22: Continues to trend downward to 13.0, and there is no left shift today. Will continue to trend. (4) Intractable nausea and vomiting: Code(s): R11.2 - Nausea with vomiting, unspecified Status: Acute Assessment and Plan: -Discontinue Zofran as it is not been working. -Phenergan also not working, switched to Reglan. -switched morphine to Dilaudid in the event the morphine was also making him vomit. -continued improvement, will transition to full liquids today - 02/18/22: Continue to advance diet as able to. Continue anti-emetics. Monitor. (5) Cardiomegaly: Code(s): I51.7 - Cardiomegaly Status: Acute Assessment and Plan: -This is never been worked up thus obtained echocardiogram -Echo shows: moderately severe left ventricular enlargement with mild eccentric hypertrophy. Mild global hypokinesis with no segmental wall motion abnormalities. Visual ejection fraction is 45-50%. Normal diastolic function. Left atrial chamber dimension is moderately enlarged. There is mild mitral valve regurgitation. There is mild tricuspid valve regurgitation. Mild pulmonary hypertension, estimated pulmonary arterial systolic pressure is 40 mmHg. (6) Hypoxia: Code(s): R09.02 - Hypoxemia Status: Acute Assessment and Plan: -was 84% on RA 02/15 -no cp or sob -CTA no PE -currently on RA (7) Hand pain, left: Code(s): M79.642 - Pain in left hand Status: Acute Assessment and Plan: -sounds like he struck something a
[2022-02-18] MEDS: polyethylene glycoL 3350 17 GM POWD.PACK PO (08:27)
[2022-02-18] MEDS: DOCUSATE SODIUM 100 MG CAPSULE PO (08:27)
[2022-02-18] MEDS: traMADol HCL (*CRX) 50 MG TABLET PO (11:26)
[2022-02-18] MEDS: SODIUM CHLORIDE 0.9% IV 1,000 ML 100 ML IV CONT (11:31)
[2022-02-18] MEDS: SODIUM CHLORIDE 0.9% IV 250 ML 30 ML IV CONT (11:36)
[2022-02-18] MEDS: TUBING, BLOOD PLUM PUMP TUBING 1 EACH XX (11:36)
--- NOTE | 2022-02-18 14:02 | PM.DS ---
DS: Admitting Diagnosis Discharge Date 02/18/2022 Admitting Diagnosis 1) Sickle Cell Crisis 2) Abdominal Pain 3) Intractable Nausea and Vomiting 4) Cardiomegaly DS: Discharge Diagnosis Discharge Diagnosis (1) Sickle cell anemia with crisis: Code(s): D57.00 - Hb-SS disease with crisis, unspecified Status: Acute Assessment and Plan: -He is being admitted for supportive care including IV fluid rehydration and analgesics and antiemetics as needed. -Dr. Dumont recommended transfusing 1 unit of packed red blood cells, went from 6.9 to 8.1 -02/15 back down to 6.9, spoke w/ Dr. Dumont, pt received another unit of PRBC -02/16 his hgb is 7.5 -02/17 his hgb is 7.0 -Patient is to follow-up with him after discharge; consider hydroxyurea once hemoglobin stabilizes. -recheck cbc tomorrow - 02/18: Hgb further declined to 6.9. 2 units PRBC's ordered today to be transfused. No hydroxyurea ordered at this time as his Hgb is not yet stable. Will continue to trend CBC and provide IVF hydration and pain control as needed. (2) Abdominal pain: Qualifiers: Abdominal location: unspecified location Qualified Code(s): R10.9 - Unspecified abdominal pain Code(s): R10.9 - Unspecified abdominal pain Status: Acute Assessment and Plan: -CT of the abdomen pelvis does not show any acute findings, likely related to sickle cell crisis -non tender on exam -negative lactate, ischemic bowel less likely -improved now after BM. tried to transition from Dilaudid to norco but he threw it up shortly after taking it. Will try tramadol today. -tolerating clears, will advance to full liquids - 02/18/22: Advance diet as tolerated. Continue anti-emetics and pain meds as needed. Should pain acutely worsen, will consider workup for ischemic bowel secondary to concern for infarction of SMA due to SSC. (3) Leukocytosis: Qualifiers: Leukocytosis type: other Qualified Code(s): D72.828 - Other elevated white blood cell count Code(s): D72.829 - Elevated white blood cell count, unspecified Status: Acute Assessment and Plan: -likely due to above in conjunction with N/V -pt did have fever on presentation but this has resolved -did test for covid/flu which was negative -UA negative -CXR w/ cardiomegaly no infiltrates -blood cultures NGTD -continue to monitor for signs of infection, will not initiate abx at this time as we do not have a source, less likely to be bacterial infection. Will readdress if fever returns -WBC trending down as he starts to improve clinically - 02/18/22: Continues to trend downward to 13.0, and there is no left shift today. Will continue to trend. (4) Intractable nausea and vomiting: Code(s): R11.2 - Nausea with vomiting, unspecified Status: Acute Assessment and Plan: -Discontinue Zofran as it is not been working. -Phenergan also not working, switched to Reglan. -switched morphine to Dilaudid in the event the morphine was also making him vomit. -continued improvement, will transition to full liquids today - 02/18/22: Continue to advance diet as able to. Continue anti-emetics. Monitor. (5) Cardiomegaly: Code(s): I51.7 - Cardiomegaly Status: Acute Assessment and Plan: -This is never been worked up thus obtained echocardiogram -Echo shows: moderately severe left ventricular enlargement with mild eccentric hypertrophy. Mild global hypokinesis with no segmental wall motion abnormalities. Visual ejection fraction is 45-50%. Normal diastolic function. Left atrial chamber dimension is moderately enlarged. There is mild mitral valve regurgitation. There is mild tricuspid valve regurgitation. Mild pulmonary hypertension, estimated pulmonary arterial systolic pressure is 40 mmHg. (6) Hypoxia: Code(s): R09.02 - Hypoxemia Status: Acute Assessment and Plan: -was 84% on RA 02/15 -no cp or sob -CTA no PE -cu
[2022-02-20 07:51] LABS: Hematocrit 20.8 % (38.5-50.0); Hemoglobin 7.1 g/dL (13.2-17.1); MCH 33.3 pg (27.0-33.0); MCV 97.7 fL (80.0-100.0); RDW 18.4 % (11.0-15.0); Red Blood Cell Count 2.13 Mill/uL (4.20-5.80)
== END 2022-02-18 14:00 | disposition left against medical advice (07) | DRG 812 ==
LOC: ANHED 07:43 → ANH3MED 11:49
PROVIDERS: Emergency Medicine; Internal Medicine; Internal Medicine Hematology & Oncology; Physician Assistant; Admitting Provider Hospitalist; Emergency Provider Emergency Medicine; Visit Provider Nurse Practitioner Adult Health
DX: D57.00 Hb-SS disease with crisis, unspecified (principal); Z20.822 Contact with and (suspected) exposure to COVID-19; D72.828 Other elevated white blood cell count; R11.2 Nausea with vomiting, unspecified; I51.7 Cardiomegaly; R09.02 Hypoxemia; M79.642 Pain in left hand; Z90.49 Acquired absence of other specified parts of digestive tract; Z87.891 Personal history of nicotine dependence
CPT/HCPCS: 36415; 36430; 71045; 71275; 73130; 74177; 80048; 80053; 81001; 82550; 82607; 82728; 82746; 83021; 83540; 83550; 83605; 83615; 83690; 83735; 84439; 84443; 84480; 85014; 85018; 85025; 85044; 85046; 85055; 85660; 86850; 86900; 86901; 86902; 86922; 87040; 93005; 93306; 96361; 96365; 96374; 96375; 96376; 99285; A9270; C9803; G0378; J1170; J1741; J2270; J2405; J2550; J2765; J3010; J7030; J7050; P9016; Q9967; U0003; U0005

== ENCOUNTER 2022-12-26 00:50 | Emergency (ER) | payer OTHER, SELFPAY | END 2022-12-26 03:33 | disposition left against medical advice (07) | DX: Z53.21 Procedure and treatment not carried out due to patient leaving prior to being seen by health care provider (principal) | CPT/HCPCS: 99199 ==

== ENCOUNTER 2023-03-19 15:13 | Outpatient (CLI) | payer OTHER, SELFPAY ==
[2023-03-19 15:38] LABS: Basophils Absolute Auto 0.1 K/mm3 (0.0-0.1); Basophils Percent Auto 0.6 % (0.2-1.2); Eosinophils Absolute Auto 0.4 K/mm3 (0-0.3); Eosinophils Percent Auto 2.5 % (0-4.4); Hemoglobin 7.3 g/dL (14.0-18.0); Immature Granulocyte Absolute 0.09 K/mm3 (0.00-0.031); Immature Granulocyte Percent A 0.6 % (0-0.5); Lymphocytes Absolute Auto 3.07 K/mm3 (0.9-3.2); Mean Corpuscular HGB Conc 35.3 g/dl (32-36); Mean Corpuscular Hemoglobin 32.4 pg (26-34); Monocytes Absolute Auto 2.8 K/mm3 (0.1-0.6); Neutrophils Absolute Auto 8.2 K/mm3 (1.3-6.7); Neutrophils Percent Auto 56.3 % (45.5-73.1); Nucleated Red Blood Cells Absolute Auto 0.1 K/mm3 (0.0-0.012); Nucleated Red Blood Cells Perc 0.4 % (0.0-0.2); Platelet Count Result 484 k/mm3 (150-375); Red Blood Count 2.25 M/mm3 (4.6-6.20); Red Cell Distribution Width 21.5 % (11.5-14.5); White Blood Count 14.6 K/mm3 (4.5-10.0)
[2023-03-19 15:40] LABS: Hematocrit 20.7 % (42.0-52.0)
[2023-03-19 17:07] LABS: Anion Gap 4 mmol/L (8-16); Blood Urea Nitrogen 8 mg/dL (9-20); Calcium 8.7 mg/dL (8.4-10.2); Carbon Dioxide 30 mmol/L (22-30); Chloride 104 mmol/L (98-107); Estimated Glomerular Filt Rate > 60; Glucose 91 mg/dL (65-110); Sodium 138 mmol/L (137-145)
== END 2023-03-19 15:14 | disposition home or self-care (01) ==
PROVIDERS: Visit Provider Internal Medicine Hematology & Oncology
DX: D57.1 Sickle-cell disease without crisis (principal)
CPT/HCPCS: 36415; 80048; 85025

== ENCOUNTER 2023-05-04 18:31 | Inpatient (IN) | payer OTHER, SELFPAY ==
[2023-05-04] VITALS (14 sets, daily range): BP systolic 110–144; BP diastolic 62–87; PULSE 72–84; RESP 12–16; TEMP 36.5–37; O2SAT 85–100; BMI 20.6
--- NOTE | ~2023-05-04 | CT_ITS ---
CT of the Abdomen and Pelvis: Indication: Ischemic bowel, abdominal pain Technique: 2.5 mm axial scans were obtained through the abdomen and pelvis following intravenous adm inistration of 100 cc of Omnipaque 350. Dose reduction technique was used on this scan by utilizing a utomated exposure control and iterative reconstruction technique. The dose-length product (DLP) was 2 62.92 mGy-cm. COMPARISON: 02/13/2022 Findings: Scans through the lung bases demonstrates stable right basilar scarring. Cholecystectomy clips are present. There is periportal edema, nonspecific. Autosplenectomy noted, wit h a very small hyperdense spleen present. The spleen, pancreas, adrenals and right kidney are within normal limits. Questionable minimal heterogeneity enhancement of the upper left renal pole parenchyma . No evidence of aortic aneurysm. No lymphadenopathy. No bowel obstruction or bowel wall thickening. There is no evidence to suggest acute appendicitis. Mi ld diffuse mesenteric edema noted. Images through the pelvis were performed. Urinary bladder unremarkable. No pelvic mass seen. No ascit es. Impression: No distinct CT evidence for ischemic bowel. Questionable subtle left pyelonephritis. Correlate with urinalysis. Mild diffuse mesenteric edema and periportal edema, nonspecific findings. Reviewed, dictated and finalized at [facility]. Impression: No distinct CT evidence for ischemic bowel. Questionable subtle left pyelonephritis. Correlate with urinalysis. Mild diffuse mesenteric edema and periportal edema, nonspecific findings.
--- NOTE | ~2023-05-04 | XR_ITS ---
Portable chest x-ray Comparison: 02/13/2022 Clinical History: Dyspnea Findings: Lungs are clear, without focal consolidation or pleural effusion. Cardiomediastinal silho uette is stable. Bones and soft tissues are unremarkable. Impression: Clear lungs. Stable cardiomegaly. Reviewed, dictated and finalized at location . Impression: Clear lungs. Stable cardiomegaly.
--- NOTE | ~2023-05-04 | XR_ITS ---
EXAM: XR abdomen/kub 1V DATE: 05/07/2023 18:17 HISTORY: abd pain IN MID LOWER ABDOMEN PATIENT HAS HAD CHOLECYSECTOMY . COMPARISON: None available. FINDINGS: Cholecystectomy clips. Clear lung bases. Normal bowel gas pattern. No organomegaly. No abno rmal abdominal calcification. Regional bones and soft tissues normal for age. IMPRESSION: No radiographic evidence of obstruction or ileus. Reviewed, dictated and finalized at location [facility].
--- NOTE | 2023-05-04 20:12 | ECG_ITS ---
Measurements Intervals [place] Rate: 77 P: 74 [place]: 231 QRS: 53 QRSD: 104 T: 18 QT: 389 QTc: 441 Interpretive Statements SINUS RHYTHM WITH FIRST DEGREE AV BLOCK MODERATE VOLTAGE CRITERIA FOR LVH, CONSIDER NORMAL VARIANT [MEETS CRITERIA IN ONE OF: R(aVL), S(V1), R(V5), R(V5/V6)+S(V1)] NONSPECIFIC T-WAVE ABNORMALITY COMPARED TO ECG 02/13/2022 07:08:55 [place] INTERVAL HAS SHORTENED Electronically Signed On 05-05-2023 8:28:45 CDT by Cesar Velasco M.D.
[2023-05-04 20:36] LABS: Mean Corpuscular HGB Conc 35.9 g/dl (32-36); Mean Corpuscular Hemoglobin 33.5 pg (26-34); Mean Corpuscular Volume 93.3 fl (80-100); Platelet Count Result 523 k/mm3 (150-375); Red Blood Count 1.79 M/mm3 (4.6-6.20); Red Cell Distribution Width 23.2 % (11.5-14.5); White Blood Count 18.9 K/mm3 (4.5-10.0)
[2023-05-04] MEDS: ONDANSETRON INJ 4 MG/2 ML VIAL 8 MG IV PUSH (20:36)
[2023-05-04] MEDS: HYDROmorphone HCL INJ (*CRX) 1 MG/ML SYR 2 MG IV PUSH (20:36)
[2023-05-04] MEDS: ACETAMINOPHEN 500 MG TABLET 1000 MG PO (20:37)
[2023-05-04] MEDS: SODIUM CHLORIDE 0.9% IV 2,000 ML 999 ML IV CONT (20:37)
[2023-05-04 20:48] LABS: Alanine Aminotransferase 102 U/L (6-50); Albumin Level 4.1 g/dL (3.5-5.1); Alkaline Phosphatase 99 U/L (38-126); Anion Gap 6 mmol/L (8-16); Aspartate Amino Transferase 155 U/L (17-59); Bilirubin,Total 6.2 mg/dL (0.2-1.3); Blood Urea Nitrogen 9 mg/dL (9-20); Calcium 8.7 mg/dL (8.4-10.2); Carbon Dioxide 31 mmol/L (22-30); Chloride 101 mmol/L (98-107); Estimated Glomerular Filt Rate > 60; Glucose 111 mg/dL (65-110); Potassium 4.5 mmol/L (3.4-5.0); Sodium 138 mmol/L (137-145)
[2023-05-04 20:56] LABS: Alveolar/Arterial O2 Gradient < 0.0 mmHg; Base Excess ABG 1.4 mEq/l (+/-2.0); Fractional Inspired Oxygen 21 %; HCO3 ABG 25.8 mEq/l (22.0-26.0); Oxygen Content ABG 7.1 %vol (16.0-22.0); Oxygen Saturation ABG 98.1 % (95.0-100.0); Oxyhemoglobin 91.3 % THb (90.0-100.0); PCO2 ABG 39.9 mmHg (35.0-45.0); PO2 ABG 108.4 mmHg (80.0-100.0); PO2 FiO2 Ratio Arterial Blood 5.16 %; pH ABG 7.429 (7.350-7.450)
[2023-05-04 20:59] LABS: Immature Reticulocyte Fraction 23.7 % (3.0-15.9); Reticulocyte Hemoglobin Conten 30.4 pg (28.2-35.7)
[2023-05-04 21:14] LABS: Influenza A QL RT-PCR Negative (Negative); Influenza B QL RT-PCR Negative (Negative); RSV RNA, RT-PCR Negative (Negative); SARS-CoV-2 RNA PCR Negative (Negative)
[2023-05-04 21:18] LABS: Hematocrit 16.7 % (42.0-52.0)
[2023-05-04 21:21] LABS: Band Neutrophils Percent 3 % (0-6); Monocytes Absolute Manual 4.15 K/mm3 (0.1-0.90); Monocytes Percent Manual 22 % (3-9); Neutrophils Absolute Manual 11.34 K/mm3 (1.3-6.7); Neutrophils Percent Manual 57 % (46-73); Total Cells Counted 100
[2023-05-04 21:22] LABS: Platelet Estimate Increased (Adequate)
[2023-05-04 21:23] LABS: Anisocytosis 3+ (NORMAL); Schistocytes None Seen (NORMAL)
[2023-05-04 21:24] LABS: Sickle Cells 2+ (NORMAL)
--- NOTE | 2023-05-04 21:24 | ED.GENADULT ---
HPI - General Adult General Chief complaint: Extremity Problem,Nontraumatic Stated complaint: WEAKNESS, sickle cell Time Seen by Provider: 05/04/23 19:29 History of Present Illness HPI narrative: This is a 38-year-old male with history of sickle cell disease presenting with a sickle cell crisis. Over the last 2 days he has been having shortness of breath and fever. Denies chest pain. He had pneumonia earlier in the year. He is also having pain in his knees feet and elbows. He has run out of Percocet. He has had multiple episodes of nausea and vomiting and is not tolerating PO His oncologist is Dr. Dumont. Related Data Home Medications Medication Instructions Recorded Confirmed No Home Medications 02/14/22 02/14/22 Allergies Allergy/AdvReac Type Severity Reaction Status Date / Time oxycodone [From Percocet] AdvReac Nausea Verified 02/13/22 06:49 PMFSH Past Medical History Medical History Sickle cell anemia Surgical History Surgical History History of appendectomy (2012) History of laparoscopic cholecystectomy (2010) Family History Family History Father Cerebrovascular accident Social History Social History Social History: Lives in [place] with his significant other. He has one child, a 16-year-old daughter. Recently laid off and is not currently employed. Smoked 0.5 packs cigarettes for 9 years but quit in 2017. He used to smoke marijuana but has not done so in several years. No alcohol abuse. Surrogate decision maker: Marilee Cantu, spouse. Code status: Full code Spiritual care concerns: No Exam Narrative: APPEARANCE: Patient is uncomfortable, he has rigors Head: atraumatic. EYES: EOMI, NOSE: Atraumatic NECK: Trachea midline RESPIRATORY: No increased rate of breathing, clear to auscultation CARDIOVASCULAR: RRR, no peripheral edema ABDOMINAL: Non-distended, soft no guarding or rebound MUSCULOSKELETAl: No obvious deformities NEURO: Alert. Moving 4/4 extremities SKIN:: Warm, dry. Normal color PSYCHIATRIC: Normal affect Course Vital Signs Vital signs: Vital Signs Temperature 98.6 F 05/04/23 18:35 Pulse Rate 80 05/04/23 18:35 Respiratory Rate 16 05/04/23 18:35 Blood Pressure 141/73 H 05/04/23 18:35 Pulse Oximetry 96 05/04/23 18:35 Oxygen Delivery Room Air 05/04/23 18:35 Temperature 98.6 F 05/04/23 18:35 Pulse Rate 80 05/04/23 18:35 Respiratory Rate 16 05/04/23 18:35 Blood Pressure 141/73 H 05/04/23 18:35 Pulse Oximetry 85 L 05/04/23 20:40 Oxygen Delivery Room Air 05/04/23 20:40 Medical Decision Making MDM Narrative Medical decision making narrative: -Presentation: this is a 30-year-old male with history of sickle cell disease presenting with shortness of breath and sickle cell pain crisis. Patient is hypoxic on room air. Workup for sickle cell crisis and infectious workup has been obtained. -DDX includes but is not limited to: Acute chest syndrome, sickle cell pain crisis, anemia -Co-morbidities complicating care: sickle cell anemia -Social determinants of health: on disability for sickle cell, lives with his girlfriend Porschia -External Chart Review: review of previous admission notes for sickle cell pain crisis -Hx from independent Sources: girlfriend at bedside -Independent interpretation of studies: white blood cell count of 18.9, Hemoglobin 6.0. Hemoglobin is typically in the mid 7s. Patient will be transfused 1 unit at this time. Kidney function normal. Total bili 6.2, minor elevations in AST ALT. Viral swabs negative chest x-ray showed significant cardiomegaly, BNP has been added. history of heart failure on previous echocardiograms. Independent EKG interpretation: Rhythm [
[2023-05-04 21:26] LABS: Target Cells 1+ (NORMAL)
[2023-05-04 21:27] LABS: Polychromasia 1+ (NORMAL)
[2023-05-04 21:54] LABS: Reticulocyte Percent 32.03 % (0.7-4.3)
[2023-05-04 21:55] LABS: Reticulocytes Absolute 0.61 M/mm3 (0.02-0.1)
--- NOTE | 2023-05-04 22:06 | PM.IMHP ---
H&P: HPI History of Present Illness Date/Time: 05/04/23 22:06 Chief Complaint: Joint and muscle pain, nausea and vomiting Narrative: 38-year-old male with past medical history of sickle cell SS disease, mild pulmonary hypertension, cardiomegaly and mildly decreased systolic function with EF 40-45% who presented to the ER with symptoms of a sickle cell crisis. Source of information comes from ER report, patient report and his significant other was at bedside. Patient evidently reported joint pain and muscle pain to the ER provider but at the time my evaluation states that he is not having any muscle pain or joint pain he just is fatigued. However, after I left the room the patient told nursing staff that he was having severe pain and requested IV pain medications He told the nursing staff at that time that he was having joint pain. The patient reports he frequently has nausea and vomiting when he has a sickle crisis. He did have some vomiting yesterday but has not had any persistent vomiting. However he had told the ER for vomiting for 2 days and was unable to tolerate p.o.. He denies any changes in his bowel habits. He denies any changes in urination. His significant other reports that his scleral icterus is actually better than what it has been in the past. Patient denies feeling short of breath or having any cough or congestion. His oxygen level when he arrived to the ER was 85%. The patient states that his oxygen level is always chronically low. The patient had been placed on 2 L nasal cannula in the ER but when he arrived to the IMU he had removed the oxygen. His vital had not been repeated since he removed the oxygen. The patient reports that he quit smoking in November of this year. He denies any chest pain or palpitations. He did have a fever up to 101.2 yesterday. He denies any recent ill contacts. Patient ran out of his Percocet a few days ago. Review of Systems Review of Systems: 12 systems were reviewed with pertinent positives and negatives per HPI. Except as documented in the HPI, all other systems were reviewed and are negative. [facility] Past Medical History Medical History (Updated 05/04/23 @ 22:11 by Jannet Rodriguez DO) Cardiomegaly Moderately severe left ventricular enlargement with mild concentric hypertrophy. Mild global hypokinesis with no segmental wall motion abnormalities, moderate left atrial enlargement Mild pulmonary hypertension Echocardiogram 02/13/2022: EF 40-45% Sickle cell anemia Surgical History Surgical History History of appendectomy (2012) History of laparoscopic cholecystectomy (2010) Family History Family History Father Cerebrovascular accident Social History Social History (Updated 05/05/23 @ 01:16 by Jannet Rodriguez DO) Social History: Lives in [place] with his significant other. He has one child, a 17-year-old daughter. Recently laid off and is not currently employed. Smoked 0.5 packs cigarettes for 10 years but quit in November 2021. He used to smoke marijuana but has not done so in several years. No alcohol abuse. Surrogate decision maker: Marilee Cantu, spouse. Code status: Full code Smoking packs per day: 0.5 Smoking cigarettes per day: 10.0 Smoking status: Former smoker Tobacco type: cigarettes Second hand tobacco smoke exposure: Yes Smoking end date: 11/11/22 Alcohol intake: never Substance use: never Lack of Transportation: No Lack of Food: Sometimes True Current Housing: I Have Housing Concerned About Future Housing: No Difficulty Paying Gas/Electric Bills: YES Difficulty Paying for Meds: YES Currently Unemployed: YES Education: High School Diploma/GED Difficulty w/ Childcare or Family Care: No Spiritual care concerns: No Meds Home Medications and Allergies Allergies Allergy/AdvReac Type
[2023-05-04 23:04] LABS: NT Pro B Type Natriuretic Pept 270 pg/mL (19.9-100)
[2023-05-04 23:05] LABS: Lactate Dehydrogenase 451 U/L (120-246)
[2023-05-04 23:10] LABS: Appearance Urine Clear (Clear); Bacteria Urine None Seen /hpf; Bilirubin Urine 1+ (Negative); Blood Urine Negative (Negative); Color Urine Dark Yellow (Yellow); Glucose Urine UA Negative (Negative); Ketones Urine Trace mg/dL (Negative); Leukocyte Esterase Ur Trace LEU/UL (Negative); Need Manual Microscopic Reviewed; Nitrate Urine Negative (Negative); Non Pathogenic Casts 0-2; Protein Urine Trace mg/dL (Negative); Specific Grav Ur 1.011 (1.001-1.035); Squamous Epithelial Cell Urine None seen /hpf (Few); WBC Urine 0-5 /hpf; pH Urine 5.5 (5.0-9.0)
[2023-05-04 23:11] LABS: Add Urine Microscopic? YES
--- NOTE | 2023-05-04 23:24 | ADMGEN ---
This patient, Giovanni Ocasio, was admitted to IMU Room 210-01 at 2308. Patient/family oriented to hospital policies and general routines including ID bracelet, bed and alarms, visiting hours, pain management, procedures, bathroom and other care routines, personal items, smoking policy, room service/diet, and visiting hours. Information on how to activate the Rapid Response Team has been discussed. Patient/Family are encouraged to report perceived risks to care and to ask questions if they do not understand what they are told or what they should do.
[2023-05-04 23:31] LABS: Site Drawn RIGHT RADIAL; Total Hemoglobin 5.3 g/dL (12.0-18.0)
[2023-05-04 23:32] LABS: Modified Allen's Test Pass
[2023-05-04] MEDS: MORPHINE SULFATE (*CRX) 4 MG/ML INJ IV PUSH (23:56)
[2023-05-05] VITALS (19 sets, daily range): BP systolic 109–148; BP diastolic 70–96; PULSE 65–85; RESP 12–20; TEMP 36–36.9; O2SAT 95–100
[2023-05-05] MEDS: DEXTROSE 5%/0.45% SOD CHL 1,000 ML 100 ML IV CONT ×2 (00:02→20:39)
--- NOTE | 2023-05-05 00:19 | PC.NURSE ---
Pt rude and not wanting to answer admission questions. Explained to patient by Dr Rodriguez that these questions are necessary for his care. Pt states you guys aren't giving me what I need, instead your asking stupid questions and I've never had to answer these questions before, they just get to it while motioning to his IV. Pt states he has never been asked admit questions at this hospital ever. Pt threatens to leave and states' get this off me gesturing to heart monitor. Dr. Rodriguez explains he will be leaving against medical advice which he shouldn't due because he needs treatment and this Nurse informs him he will need to sign a form first. Patient continues to complain and this nurse asks patient to clarify if he is leaving or staying. Pt answers are you gonna keep asking questions . This nurse explains the admission is done, this is a care standard, and that Kita ALBERT has been getting his fluids and pain medicine ready while admission in progress, and we are waiting for blood to be ready. Patient informed he needs to respectful with staff and he again demand we give him what he needs .
[2023-05-05] MEDS: AZITHROMYCIN 500 MG/NS 250 ML 500 MG/250 ML BAG 250 MG IVPB ×2 (00:39→20:39)
[2023-05-05] MEDS: oxyCODONE/ACETAMINOPHEN (*CRX) 5-325 MG TABLET 1 TABLET PO ×4 (01:35→20:34)
[2023-05-05] MEDS: MORPHINE SULFATE (*CRX) 4 MG/ML INJ IV PUSH ×4 (04:06→21:19)
[2023-05-05] MEDS: TUBING, BLOOD PLUM PUMP TUBING 1 EACH XX (04:30)
[2023-05-05] MEDS: ENOXAPARIN 40 MG/0.4 ML SYRINGE SUB-Q (08:24)
[2023-05-05] MEDS: HYDROXYUREA (*CHEMO) 500 MG CAPSULE PO (10:44)
[2023-05-05] MEDS: FOLIC ACID 1 MG TABLET PO (10:44)
--- NOTE | 2023-05-05 11:39 | WPDPN ---
Progress Note: A&P Assessment and Plan (1) Acute respiratory failure with hypoxia: Code(s): J96.01 - Acute respiratory failure with hypoxia Status: Acute (2) Sickle cell anemia with crisis: Code(s): D57.00 - Hb-SS disease with crisis, unspecified Status: Acute (3) Symptomatic anemia: Code(s): D64.9 - Anemia, unspecified Status: Acute (4) Intractable nausea and vomiting: Code(s): R11.2 - Nausea with vomiting, unspecified Status: Acute Plan The patient is having acute hypoxic respiratory failure likely due to sickle cell crisis possible chest syndrome. However chest x-ray does not suggest pneumonia. Hypoxia could also be due to patient's history of moderate pulmonary hypertension again likely resultant of his sickle cell disease and or mild systolic dysfunction. Patient actually appears intravascularly volume depleted with elevated serum total protein. Patient received 2 L normal saline in the ER. Will place patient on D5 half-normal saline at maintenance fluids and monitor fluid status closely. Will continue supplemental oxygen to maintain O2 sats greater than 92%. Will empirically treat for possible pneumonia due to patient's leukocytosis and history of fever at home with new hypoxia. Viral panel is negative. Will transfuse to stable hemoglobin. Given the patient's hypoxia will aim for slightly higher hemoglobin than baseline (hemoglobin of 8-9). The patient's labs were reviewed and demonstrated elevated attack count and bilirubin. I have requested an add on LDH. Everything is consistent with acute sickle crisis. Will provide pain medications with morphine 4 mg IV q.4 hours and will continue patient's home Percocet. Will also resume folic acid and hydroxyurea that the patient is post be on as outpatient. The patient frequently has nausea vomiting associated with sickle crisis. Abdominal exam is benign. Will provide Zofran as needed for nausea vomiting. Patient will be placed in IMU for close monitoring given acute hypoxic respiratory failure and sickle crisis. Clinical condition: serious Prognosis: Guarded MEDICAL DECISION MAKING NARRATIVE History obtained from: Patient, ER report, past medical records History from independent sources: Patient and girlfriend External chart review: Known New problems addressed: Acute hypoxic respiratory failure, acute on chronic anemia, sickle cell crisis Chronic illnesses addressed: Sickle cell anemia, mild pulmonary hypertension, cardiomegaly Independent interpretation of studies: EKG, chest x-ray Discussion of management with other providers: ER provider Comorbidities complicating care: Sickle cell anemia, cardiac disease Diagnostic tests considered but not ordered: CTA of the chest, CT of abdomen pelvis Shared decision making: Discussion with patient and girlfriend. Risk of complication: High risk of complication, worsening respiratory failure or worsening anemia Time spent in patient care: 65 minutes During my interview with the patient the patient became agitated and upset. He stated that we were asking him a necessary questions and not doing what he needed. I tried to elicit from the patient what he thought we needed to do that we were not already providing. I was in the process of trying to explain to the patient the plan of care when he stated that he wanted to leave the hospital. I told him that he would have to leave against medical advice due to his condition. I excused myself from the room. After I left the room the patient evidently decide to stay in the hospital. He told the nursing staff that he just needs his blood and he is upset why we cannot get his blood. Unfortunately due to patient having sickle cell he has to have additional blood test before transfusion can occur. The blood is being ordered outside facility. After I left the room the patient then complained of severe joint pain and was requesting additional IV pain
[2023-05-05] MEDS: ONDANSETRON INJ 4 MG/2 ML VIAL IV PUSH ×2 (11:47→20:38)
--- NOTE | 2023-05-05 12:00 | PC.NURSE ---
This patient, Giovanni Ocasio, was received from [facility] on 05/05/23 at 1200. Patient/family oriented to unit policies and routines.
--- NOTE | 2023-05-05 12:03 | PC.NURSE ---
This patient, Giovanni Ocasio, was transferred to [facility] on 05/05/23 at 1155. Personal belongings sent with patient. Report given to BETY Mora. Appropriate documentation sent with patient.
[2023-05-05 13:45] LABS: Hemoglobin 7.2 g/dL (14.0-18.0); Immature Platelet Fraction Pct 4.5 % (0.9-11.2); Mean Corpuscular HGB Conc 34.4 g/dl (32-36); Mean Corpuscular Hemoglobin 31.3 pg (26-34); Mean Corpuscular Volume 90.9 fl (80-100); Mean Platelet Volume 10.2 fl (7.4-10.4); Platelet Count Result 464 k/mm3 (150-375); Red Cell Distribution Width 22.2 % (11.5-14.5); White Blood Count 14.5 K/mm3 (4.5-10.0)
[2023-05-05 13:55] LABS: Alanine Aminotransferase 84 U/L (6-50); Albumin Level 3.5 g/dL (3.5-5.1); Alkaline Phosphatase 85 U/L (38-126); Anion Gap 5 mmol/L (8-16); Aspartate Amino Transferase 112 U/L (17-59); Blood Urea Nitrogen 7 mg/dL (9-20); Calcium 7.8 mg/dL (8.4-10.2); Carbon Dioxide 27 mmol/L (22-30); Chloride 105 mmol/L (98-107); Estimated CRCL calculation 120 ml/min; Estimated Glomerular Filt Rate > 60; Glucose 86 mg/dL (65-110); Sodium 137 mmol/L (137-145)
[2023-05-05 14:11] LABS: Hematocrit 20.9 % (42.0-52.0)
[2023-05-05 14:22] LABS: Neutrophils Percent Manual 39 % (46-73); Total Cells Counted 100
[2023-05-05 14:25] LABS: Band Neutrophils Percent 3 % (0-6); Basophils Percent Manual 0 % (0-1); Eosinophils Absolute Manual 1.16 K/mm3 (0.02-0.5); Eosinophils Percent Manual 8 % (0-4); Lymphocytes Percent Manual 29 % (18-44); Monocytes Absolute Manual 3.04 K/mm3 (0.1-0.90); Monocytes Percent Manual 21 % (3-9); Neutrophils Absolute Manual 6.09 K/mm3 (1.3-6.7); Platelet Estimate Adequate (Adequate)
[2023-05-05 14:29] LABS: Large Platelets Present
[2023-05-05 14:32] LABS: Anisocytosis 2+ (NORMAL); Sickle Cells 1+ (NORMAL); Target Cells 1+ (NORMAL)
[2023-05-05 14:33] LABS: Polychromasia 1+ (NORMAL)
[2023-05-05 14:34] LABS: Schistocytes None Seen (NORMAL)
--- NOTE | 2023-05-05 16:40 | PC.NURSE ---
This patient, Giovanni Ocasio, was received from [facility] on 05/05/23 at 1640. Patient/family oriented to unit policies and routines.
[2023-05-05] MEDS: ACETAMINOPHEN 325 MG TABLET 650 MG PO (17:02)
[2023-05-05 22:30] LABS: Hematocrit 21.2 % (42.0-52.0); Hemoglobin 7.2 g/dL (14.0-18.0)
[2023-05-05] MEDS: DOCUSATE SODIUM 100 MG CAPSULE PO (22:37)
[2023-05-05] MEDS: HYDROmorphone HCL INJ (*CRX) 1 MG/ML SYR IV PUSH (22:38)
[2023-05-06] MEDS: HYDROmorphone HCL INJ (*CRX) 1 MG/ML SYR IV PUSH ×6 (02:07→22:42)
[2023-05-06 05:41] LABS: Hemoglobin 7.2 g/dL (14.0-18.0); Mean Corpuscular HGB Conc 34.3 g/dl (32-36); Mean Corpuscular Volume 90.5 fl (80-100); Mean Platelet Volume 10.4 fl (7.4-10.4); Platelet Count Result 489 k/mm3 (150-375); Red Blood Count 2.32 M/mm3 (4.6-6.20); Red Cell Distribution Width 22.8 % (11.5-14.5); White Blood Count 14.6 K/mm3 (4.5-10.0)
[2023-05-06 05:50] LABS: Alanine Aminotransferase 83 U/L (6-50); Albumin Level 3.5 g/dL (3.5-5.1); Alkaline Phosphatase 97 U/L (38-126); Anion Gap 1 mmol/L (8-16); Aspartate Amino Transferase 109 U/L (17-59); Bilirubin,Total 5.4 mg/dL (0.2-1.3); Blood Urea Nitrogen 9 mg/dL (9-20); Carbon Dioxide 31 mmol/L (22-30); Chloride 104 mmol/L (98-107); Estimated CRCL calculation 107 ml/min; Estimated Glomerular Filt Rate > 60; Glucose 91 mg/dL (65-110); Magnesium 1.4 mg/dL (1.6-2.3); Potassium 4.1 mmol/L (3.4-5.0); Reticulocyte Hemoglobin Conten 30.6 pg (28.2-35.7); Reticulocyte Percent 23.21 % (0.7-4.3); Sodium 136 mmol/L (137-145)
[2023-05-06 06:28] LABS: Eosinophils Absolute Manual 1.31 K/mm3 (0.02-0.5); Eosinophils Percent Manual 9 % (0-4); Lymphocytes Absolute Manual 2.92 K/mm3 (1.1-4.5); Lymphocytes Percent Manual 20 % (18-44); Monocytes Absolute Manual 2.19 K/mm3 (0.1-0.90); Monocytes Percent Manual 15 % (3-9); Neutrophils Percent Manual 56 % (46-73); Total Cells Counted 100
[2023-05-06 06:29] LABS: Anisocytosis 2+ (NORMAL); Ovalocytes 1+ (NORMAL); Platelet Estimate Increased (Adequate); Target Cells 1+ (NORMAL)
[2023-05-06 06:30] LABS: Schistocytes None Seen (NORMAL); Sickle Cells 1+ (NORMAL)
[2023-05-06 08:00] VITALS: BP 133/74; PULSE 79; PULSE 86; RESP 20; TEMP 38.4; O2SAT 100; O2SAT 98
[2023-05-06] MEDS: FOLIC ACID 1 MG TABLET PO (08:07)
[2023-05-06] MEDS: ENOXAPARIN 40 MG/0.4 ML SYRINGE SUB-Q (08:07)
[2023-05-06] MEDS: DOCUSATE SODIUM 100 MG CAPSULE PO ×2 (08:07→19:38)
[2023-05-06] MEDS: HYDROXYUREA (*CHEMO) 500 MG CAPSULE PO (08:07)
[2023-05-06 08:08] VITALS: TEMP 38.4
[2023-05-06] MEDS: ACETAMINOPHEN 325 MG TABLET 650 MG PO (08:08)
[2023-05-06 08:13] LABS: Reticulocytes Absolute 0.48 M/mm3 (0.02-0.1)
[2023-05-06 09:05] VITALS: TEMP 37.2
[2023-05-06] MEDS: DEXTROSE 5%/0.45% SOD CHL 1,000 ML 100 ML IV CONT (12:16)
--- NOTE | 2023-05-06 13:30 | P.PN_ITS ---
Progress Note: A&P Assessment and Plan (1) Acute respiratory failure with hypoxia: Code(s): J96.01 - Acute respiratory failure with hypoxia Status: Acute (2) Sickle cell anemia with crisis: Code(s): D57.00 - Hb-SS disease with crisis, unspecified Status: Acute (3) Symptomatic anemia: Code(s): D64.9 - Anemia, unspecified Status: Acute (4) Intractable nausea and vomiting: Code(s): R11.2 - Nausea with vomiting, unspecified Status: Acute Plan The patient is having acute hypoxic respiratory failure likely due to sickle cell crisis possible chest syndrome. However chest x-ray does not suggest pneumonia. Hypoxia could also be due to patient's history of moderate pulmonary hypertension again likely resultant of his sickle cell disease and or mild systolic dysfunction. Patient actually appears intravascularly volume depleted with elevated serum total protein. Patient received 2 L normal saline in the ER. Will place patient on D5 half-normal saline at maintenance fluids and monitor fluid status closely. Will continue supplemental oxygen to maintain O2 sats greater than 92%. Will empirically treat for possible pneumonia due to patient's leukocytosis and history of fever at home with new hypoxia. Viral panel is negative. Will transfuse to stable hemoglobin. Given the patient's hypoxia will aim for slightly higher hemoglobin than baseline (hemoglobin of 8- 9). The patient's labs were reviewed and demonstrated elevated attack count and bilirubin. I have requested an add on LDH. Everything is consistent with acute sickle crisis. Will provide pain medications with morphine 4 mg IV q.4 hours and will continue patient's home Percocet. Will also resume folic acid and hydroxyurea that the patient is post be on as outpatient. The patient frequently has nausea vomiting associated with sickle crisis. Abdominal exam is benign. Will provide Zofran as needed for nausea vomiting. Patient will be placed in IMU for close monitoring given acute hypoxic respiratory failure and sickle crisis. Clinical condition: serious Prognosis: Guarded MEDICAL DECISION MAKING NARRATIVE History obtained from: Patient, ER report, past medical records History from independent sources: Patient and girlfriend External chart review: Known New problems addressed: Acute hypoxic respiratory failure, acute on chronic anemia, sickle cell crisis Chronic illnesses addressed: Sickle cell anemia, mild pulmonary hypertension, cardiomegaly Independent interpretation of studies: EKG, chest x-ray Discussion of management with other providers: ER provider Comorbidities complicating care: Sickle cell anemia, cardiac disease Diagnostic tests considered but not ordered: CTA of the chest, CT of abdomen pelvis Shared decision making: Discussion with patient and girlfriend. Risk of complication: High risk of complication, worsening respiratory failure or worsening anemia Time spent in patient care: 65 minutes During my interview with the patient the patient became agitated and upset. He stated that we were asking him a necessary questions and not doing what he needed. I tried to elicit from the patient what he thought we needed to do that we were not already providing. I was in the process of trying to explain to the patient the plan of care when he stated that he wanted to leave the hospital. I told him that he would have to leave against medical advice due to his condition. I excused myself from the room. After I left the room the patient evidently decide to stay in the hospital. He told the nursing staff that he just needs his blood and he is upset why we cannot get his bloo
[2023-05-06 16:00] VITALS: BP 156/92; PULSE 79; RESP 20; TEMP 37.7; O2SAT 100
--- NOTE | 2023-05-06 18:03 | PDONCCN ---
HPI - Date of Consult Date/Time: 05/06/23 18:03 Requesting Physician: Jannet Rodriguez DO Primary Care Provider: PHYSICIAN NOT ON STAFF - Consult Narrative Reason for consult: Sickle cell anemia Narrative: Giovanni Ocasio is a 38 year old male with history of sickle cell disease was seen last in the office on March 19, 2023. He ran out of his hydroxyurea at that time. He now came into the hospital with constipation for last 4 days duration with abdominal pain and cramping. He normally takes Bentyl for abdominal cramping. He denies any fevers and chills but in the hospital found to have low-grade temperature of 101?. He denies any dysuria and hematuria. Labs showed hemoglobin of 6.0. He received 2 units of packed red blood cells. Other labs showed elevated WBC count of 18.9 with elevated platelet count. LDH and reticulocyte count was elevated as well as total bilirubin. He was started on MiraLax but still has no bowel movement yet. CT abdomen and pelvis was performed that showed no evidence of ischemic bowel. There was some questionable left pyelonephritis. Review of Systems - Review of Systems All systems reviewed & are unremarkable except as noted in [facility] and [facility] Medical History: Medical History (Last Updated 05/04/23 @ 22:11 by Jannet Rodriguez DO) Cardiomegaly Moderately severe left ventricular enlargement with mild concentric hypertrophy. Mild global hypokinesis with no segmental wall motion abnormalities, moderate left atrial enlargement Mild pulmonary hypertension Echocardiogram 02/13/2022: EF 40-45% Sickle cell anemia Surgical History: Surgical History (Last Reviewed 05/04/23 @ 22:11 by Jannet Rodriguez DO) History of appendectomy Onset Date: 2012 History of laparoscopic cholecystectomy Onset Date: 2010 Family History: Family History (Last Reviewed 05/05/23 @ 01:21 by Jannet Rodriguez DO) Father Cerebrovascular accident - Social History Social History: Social History (Last Updated 05/05/23 @ 01:16 by Jannet Rodriguez DO) Alcohol Use: Alcohol intake: never Substance Use: Substance use: never Others: Spiritual care concerns: No Smoking Status: Smoking status: Former smoker Tobacco type: cigarettes Second hand tobacco smoke exposure: Yes Smoking end date: 11/11/22 Smoking Pack-years: Smoking packs per day: 0.5 Smoking cigarettes per day: 10.0 Social Determinants of Health: Has the Lack of Transportation Kept You From Medical Appointments or From Getting Medications?: No Within the Past 12 Months, Were You Worried Whether Your Food Would Run Out Before You Got Money to Buy More?: Sometimes True What is Your Housing Situation Today?: I Have Housing Are You Worried That in the Next 2 Months, You May Not Have Your Own Housing to Live In?: No Do You Have Trouble Paying Your Heating Or Electricity Bill?: Yes Do You Have Trouble Paying For Medicines?: Yes Are You Currently Unemployed and Looking for Work?: Yes Highest Level of Education Completed: High School Diploma/GED Do You Have Trouble With Childcare or the Care of a Family Member?: No Exam - Vital Signs Vital Signs - 24 hr 05/05/23 23:34 05/06/23 08:00 05/06/23 08:08 Temperature 36.9 C 38.4 C H 38.4 C H Pulse Rate 80 86 Respiratory Rate 13 20 Blood Pressure 129/70 133/74 Pulse Oximetry 96 98 05/06/23 09:05 05/06/23 16:00 Temperature 37.2 C 37.7 C H Pulse Rate 79 Respiratory Rate 20 Blood Pressure 156/92 H Pulse Oximetry 100 - Exam HEENT: EOMI, PERRLA, mucous membranes moist and pink Neck: supple. No: JVD Lungs: clear to auscultation, normal air movement Heart: no murmurs, gallops, or rubs, regular rhythm, regular rate Abdomen: abdomen soft, non-distended, normal bowel sounds Extremities: normal pulses Integumentary: no abnormalities Neurological: normal speech Psychological: mental status NL - Lab
[2023-05-06] MEDS: polyethylene glycoL 3350 17 GM POWD.PACK PO (19:02)
[2023-05-06] MEDS: BISACODYL 10 MG SUPPOSITORY RECTAL (19:02)
[2023-05-06] MEDS: AZITHROMYCIN 500 MG/NS 250 ML 500 MG/250 ML BAG 250 MG IVPB (19:37)
[2023-05-06 19:58] LABS: Appearance Urine Clear (Clear); Bilirubin Urine 1+ (Negative); Blood Urine Negative (Negative); Color Urine Dark Yellow (Yellow); Glucose Urine UA Negative (Negative); Ketones Urine Negative (Negative); Leukocyte Esterase Ur Negative LEU/UL (Negative); Nitrate Urine Negative (Negative); Protein Urine Negative (Negative); Specific Grav Ur 1.009 (1.001-1.035); pH Urine 6.5 (5.0-9.0)
[2023-05-06 20:04] LABS: Add Urine Microscopic? NO
[2023-05-06 20:43] VITALS: BP 125/72; PULSE 78; RESP 18; TEMP 37.2; O2SAT 97
[2023-05-06 21:00] VITALS: O2SAT 97
[2023-05-07] MEDS: oxyCODONE/ACETAMINOPHEN (*CRX) 5-325 MG TABLET 1 TABLET PO ×2 (00:48→08:16)
[2023-05-07] MEDS: HYDROmorphone HCL INJ (*CRX) 1 MG/ML SYR IV PUSH ×5 (01:57→20:43)
[2023-05-07] MEDS: DEXTROSE 5%/0.45% SOD CHL 1,000 ML 100 ML IV CONT ×2 (01:58→13:40)
[2023-05-07 05:34] VITALS: BP 158/85; PULSE 84; RESP 18; TEMP 36.9; O2SAT 97
[2023-05-07 05:41] LABS: Basophils Absolute Auto 0.1 K/mm3 (0.0-0.1); Basophils Percent Auto 0.6 % (0.2-1.2); Eosinophils Absolute Auto 0.5 K/mm3 (0-0.3); Eosinophils Percent Auto 3.7 % (0-4.4); Immature Granulocyte Absolute 0.16 K/mm3 (0.00-0.031); Immature Granulocyte Percent A 1.3 % (0-0.5); Immature Platelet Fraction Pct 4.8 % (0.9-11.2); Lymphocytes Absolute Auto 3.02 K/mm3 (0.9-3.2); Mean Corpuscular HGB Conc 34.3 g/dl (32-36); Mean Corpuscular Hemoglobin 31.8 pg (26-34); Mean Corpuscular Volume 92.7 fl (80-100); Mean Platelet Volume 10.5 fl (7.4-10.4); Neutrophils Absolute Auto 5.9 K/mm3 (1.3-6.7); Neutrophils Percent Auto 46.4 % (45.5-73.1); Nucleated Red Blood Cells Absolute Auto 0.2 K/mm3 (0.0-0.012); Nucleated Red Blood Cells Perc 1.5 % (0.0-0.2); Platelet Count Result 499 k/mm3 (150-375); Red Cell Distribution Width 23.8 % (11.5-14.5); White Blood Count 12.6 K/mm3 (4.5-10.0)
[2023-05-07 05:51] LABS: Alanine Aminotransferase 83 U/L (6-50); Albumin Level 3.5 g/dL (3.5-5.1); Alkaline Phosphatase 120 U/L (38-126); Anion Gap 3 mmol/L (8-16); Aspartate Amino Transferase 115 U/L (17-59); Blood Urea Nitrogen 9 mg/dL (9-20); Calcium 8.2 mg/dL (8.4-10.2); Carbon Dioxide 32 mmol/L (22-30); Chloride 102 mmol/L (98-107); Estimated CRCL calculation 128 ml/min; Estimated Glomerular Filt Rate > 60; Glucose 103 mg/dL (65-110); Magnesium 1.5 mg/dL (1.6-2.3); Potassium 3.8 mmol/L (3.4-5.0); Sodium 137 mmol/L (137-145)
[2023-05-07 06:01] LABS: Immature Reticulocyte Fraction 27.9 % (3.0-15.9); Reticulocyte Hemoglobin Conten 31.5 pg (28.2-35.7); Reticulocyte Percent 20.74 % (0.7-4.3); Reticulocytes Absolute 0.45 M/mm3 (0.02-0.1)
[2023-05-07 06:02] LABS: Hematocrit 20.4 % (42.0-52.0)
[2023-05-07 06:03] LABS: Hypochromasia 2+ (NORMAL); Platelet Estimate Adequate (Adequate)
[2023-05-07 06:04] LABS: Anisocytosis 2+ (NORMAL); Macrocytosis 1+ (NORMAL); Ovalocytes 2+ (NORMAL); Poikilocytosis 2+ (NORMAL); Sickle Cells 1+ (NORMAL); Target Cells 2+ (NORMAL)
[2023-05-07 06:05] LABS: Schistocytes None Seen (NORMAL); Tear Drop Cells 1+ (NORMAL)
[2023-05-07 08:00] VITALS: O2SAT 97
[2023-05-07] MEDS: HYDROXYUREA (*CHEMO) 500 MG CAPSULE PO (08:55)
[2023-05-07] MEDS: DOCUSATE SODIUM 100 MG CAPSULE PO ×2 (08:55→20:43)
[2023-05-07] MEDS: FOLIC ACID 1 MG TABLET PO (08:55)
[2023-05-07] MEDS: levoFLOXacin 750 MG/D5W 150 ML 750 MG/150 ML BAG 100 MG IVPB (09:25)
[2023-05-07] MEDS: DICYCLOMINE HCL 10 MG CAPSULE 20 MG PO ×2 (09:25→17:34)
[2023-05-07] MEDS: PANTOPRAZOLE 40 MG TABLET PO (09:26)
[2023-05-07] MEDS: ENOXAPARIN 40 MG/0.4 ML SYRINGE SUB-Q (09:26)
[2023-05-07] MEDS: polyethylene glycoL 3350 17 GM POWD.PACK PO ×2 (12:28→17:34)
[2023-05-07 16:00] VITALS: BP 135/74; PULSE 78; RESP 18; TEMP 36.8; O2SAT 98
[2023-05-07] MEDS: LACTULOSE 20 GM/30 ML UDC PO (18:33)
[2023-05-07 21:00] VITALS: BP 122/69; PULSE 81; RESP 18; TEMP 36.9; O2SAT 97
--- NOTE | 2023-05-07 23:48 | PC.NURSE ---
Nurse was notified by the patient that they were wanting their discharge paperwork. Upon obtaining this information, discharge process was explained to the patient and that the RN would notify the MD. At time the MD was not wanting to discharge the patient at this time. Patients options were explained to them in their entirety. Patient and family elected to leave AMA at 2345.
--- NOTE | 2023-05-08 00:22 | P.PNCROSS_ITS ---
Event Note Event Note Event Note: I received a call from the patient's nurse and the charge nurse just before 23: 30. The patient reportedly had a good bowel movement and stated he felt back to normal and wanted to be discharged. I recommended that the patient stay in the hospital until morning to ensure that his symptoms did not return. About 15 minutes thereafter I received a call that the patient left against medical advice. He had full decision-making capacity and signed the AMA paperwork. I did not see or evaluate the patient prior to him leaving the hospital.
== END 2023-05-07 23:45 | disposition left against medical advice (07) | DRG 811 ==
LOC: ANHED 22:09 → ANHIMU 22:36 → ANH3MED 05-05 11:57
PROVIDERS: Family Medicine; Internal Medicine Hematology & Oncology; Nurse Practitioner; Admitting Provider Internal Medicine; Emergency Provider Emergency Medicine; Visit Provider Physician Assistant
DX: D57.01 Hb-SS disease with acute chest syndrome (principal); J18.9 Pneumonia, unspecified organism; J96.01 Acute respiratory failure with hypoxia; Z20.822 Contact with and (suspected) exposure to COVID-19; I27.20 Pulmonary hypertension, unspecified; I51.7 Cardiomegaly; Z87.891 Personal history of nicotine dependence; Z90.49 Acquired absence of other specified parts of digestive tract
CPT/HCPCS: 36415; 36430; 36600; 71045; 74018; 74177; 80053; 81001; 81003; 82805; 83615; 83735; 83880; 85014; 85018; 85025; 85046; 85055; 85660; 86850; 86900; 86901; 86902; 86922; 87040; 87637; 93005; 96361; 96374; 96375; 99291; A9270; J0456; J0696; J1170; J1650; J1956; J2270; J2405; J7030; P9016; Q9967

== ENCOUNTER 2023-06-28 12:42 | Emergency (ER) | payer OTHER, SELFPAY ==
[2023-06-28 12:50] VITALS: BP 120/67; PULSE 88; RESP 18; TEMP 37.3; O2SAT 99
--- NOTE | 2023-06-28 13:00 | ED.LOWEXIN ---
HPI - Extremity Injury (Lower) General Chief Complaint: Extremity Injury, Lower Stated Complaint: right foot injury Time Seen by Provider: 06/28/23 12:47 Source: patient Mode of arrival: ambulatory Limitations: no limitations History of Present Illness HPI Narrative: Giovanni is a 38-year-old male patient presenting to the clinic today with complaints of right great toe pain. He reports he jammed his toe earlier today and thinks it may be broken. Related Data Home Medications Medication Instructions Recorded Confirmed folic acid 1 mg tablet 1 mg PO DAILY 05/05/23 06/28/23 hydroxyurea 500 mg capsule 500 mg PO DAILY 05/05/23 06/28/23 Allergies Allergy/AdvReac Type Severity Reaction Status Date / Time No Known Allergies Allergy Verified 06/28/23 12:46 Review of Systems Review of Systems: Pertinent positives per HPI. Patient denies any fever, chills, rash, headache, visual changes, dizziness, cough, runny nose, sore throat, shortness of breath, chest pain, palpitations, nausea, vomiting, diarrhea, constipation, abdominal pain, or any urinary issues. [facility] Past Medical History Medical History Cardiomegaly Moderately severe left ventricular enlargement with mild concentric hypertrophy. Mild global hypokinesis with no segmental wall motion abnormalities, moderate left atrial enlargement Mild pulmonary hypertension Echocardiogram 02/13/2022: EF 40-45% Sickle cell anemia Surgical History Surgical History History of appendectomy (2012) History of laparoscopic cholecystectomy (2010) Family History Family History Father Cerebrovascular accident Social History Social History Social History: Lives in [place] with his significant other. He has one child, a 17-year-old daughter. Recently laid off and is not currently employed. Smoked 0.5 packs cigarettes for 10 years but quit in November 2021. He used to smoke marijuana but has not done so in several years. No alcohol abuse. Surrogate decision maker: Marilee Cantu, spouse. Code status: Full code Smoking packs per day: 0.5 Smoking cigarettes per day: 10.0 Smoking status: Former smoker Tobacco type: cigarettes Second hand tobacco smoke exposure: Yes Smoking end date: 11/11/22 Alcohol intake: never Substance use: never Lack of Transportation: No Lack of Food: Sometimes True Current Housing: I Have Housing Concerned About Future Housing: No Difficulty Paying Gas/Electric Bills: YES Difficulty Paying for Meds: YES Currently Unemployed: YES Education: High School Diploma/GED Difficulty w/ Childcare or Family Care: No Spiritual care concerns: No Comments At the time of my signature, I reviewed and agree with the nursing past medical, surgical, social, and family history. There is no relevant family history pertinent to the patient complaint. Exam Narrative: General: Well-developed, well nourished, in no apparent distress Head: Normocephalic, atraumatic. Cardio: Regular rate and rhythm, s1 and s2 normal, no murmur appreciated. Resp: Clear to auscultation bilaterally, no rhonchi, rales, wheezing or rubs. Musculoskeletal: No deformity, no malalignment, tender to palpation over the proximal and middle phalanx of the right great toe with very minimal toe swelling, range of motion limited due to pain, muscle strength strong and equal, peripheral pulse strong, no edema, no cyanosis, sitting in a wheelchair Course Course Emergency Course: Portions of this record may have been created with voice recognition software. Level of Care: Express Care Visit Vital Signs Vital signs: Vital Signs Temperature 37.3 C 06/28/23 12:50 Pulse Rate 88 06/28/23 12:50 Resp
[2023-06-28] MEDS: KETOROLAC (*BKC) 60 MG/2 ML VIAL IM (13:21)
== END 2023-06-28 13:40 | disposition home or self-care (01) ==
PROVIDERS: Emergency Provider Nurse Practitioner Family; PCP Emergency Medicine
DX: M79.674 Pain in right toe(s) (principal); Z87.891 Personal history of nicotine dependence; I51.7 Cardiomegaly; I27.20 Pulmonary hypertension, unspecified; D57.1 Sickle-cell disease without crisis
CPT/HCPCS: 96372; 99213; G0463; J1885